=== PATIENT | male | born 1965 | race Caucasian/White ===

== ENCOUNTER 2017-02-06 10:50 | Day surgery (SDC) | payer OTHER ==
[~2017-02-06 10:50] MED LIST: Buffered Lidocaine 0.9% SYRIN* 5 ML/SYR SYRINGE INTRADERM ONE; Dexamethasone IV* 4 MG/ML 1 ML (4 MG) IV SLOW PU ONE; Famotidine IV* 10 MG/ML 2 ML (20 mg) IV ONE; ceFAZolin 2 GM PREMIX (*) 100 ML IVPB ONE
[2017-02-06] MEDS ORDERED: Buffered Lidocaine 0.9% SYRIN* 5 ML/SYR SYRINGE ONE (10:53)
[2017-02-06] MEDS ORDERED: Dexamethasone IV* 4 MG/ML 1 ML (4 MG) ONE (10:53)
[2017-02-06] MEDS ORDERED: Famotidine IV* 10 MG/ML 2 ML (20 mg) ONE (10:53)
[2017-02-06] MEDS ORDERED: Lidocaine 1% INJ* 10 MG/ML 30 ML SDV ONE (11:25)
[2017-02-06] MEDS ORDERED: Midazolam* 1 MG/ML 2 ML VIAL (2 MG) ONE (12:36)
[2017-02-06] MEDS ORDERED: fentaNYL* 50 MCG/ML 2 ML VIAL (100 MCG VIAL) ONE (12:36)
[2017-02-06] MEDS ORDERED: Lidocaine 2% PF * 5 ML VIAL ONE (12:43)
[2017-02-06] MEDS ORDERED: Propofol* 10 MG/ML 20 ML BTL IV PUSH ONE (12:43)
[2017-02-06] MEDS ORDERED: fentaNYL* 50 MCG/ML 2 ML VIAL (100 MCG VIAL) IV PRN (13:14)
[2017-02-06] MEDS ORDERED: oxyCODONE/Acetamin 5/325 MG* TAB PO PRN (13:14)
[2017-02-06] MEDS ORDERED: HYDROcodone/ACETAMIN 5-325 MG* 1 TAB PO PRN (13:14)
[2017-02-06] MEDS ORDERED: Ondansetron INJ* 2 MG/ML VIAL IV PRN (13:14)
--- NOTE | 2017-02-06 13:54 | RAD ---
HISTORY: Port placed COMPARISONS: December 25, 2016 VIEWS:1: Single frontal portable view of the chest at 1:33 PM FINDINGS: LINES AND TUBES: A right-sided chest port is noted from subclavian approach with the tip overlying the right atrium. CARDIOMEDIASTINAL SILHOUETTE: The cardiomediastinal silhouette is normal for portable technique. PLEURA: The costophrenic angles are sharp. No pleural abnormalities are noted. LUNG PARENCHYMA: The lungs are clear. ABDOMEN: The upper abdomen is clear. There is no subphrenic gas. BONES AND SOFT TISSUES: No bone or soft tissue abnormalities are noted. IMPRESSION: LINES AND TUBES ABOVE. NO ACTIVE CARDIOPULMONARY DISEASE.
[2017-02-06 14:29] VITALS: BP 142/105
--- NOTE | 2017-02-07 02:37 | OP ---
CC: Madi Melton MD * DATE OF OPERATION: 02/06/17 - [facility] DATE OF : 61 SURGEON: Randy Everett MD WILDLIFE BIOLOGIST: None. ANESTHESIOLOGIST: Dr. Dinero. ANESTHESIA: LMAC anesthesia. PRE-OP DIAGNOSIS: Melanoma. POST-OP DIAGNOSIS: Melanoma. OPERATIVE PROCEDURE: Placement of right subclavian 8-Welsh PowerPort. DESCRIPTION OF PROCEDURE: The patient was supine on the operative table. After adequate intravenous sedation, compression stockings, Evelyn Hugger warmer, and intravenous antibiotics, the right neck and chest region were prepped with anesthetic, draped in a sterile fashion. Local infiltrative anesthesia was administered. Subclavian incision was created at approximately 3 cm and inferior pocket was created. Subclavian venipuncture was carried out and guidewire was passed under fluoroscopic guidance. Catheter was passed through the peel-away introducer. It was measured and cut at 24 cm under fluoroscopy, attached to the port which was sutured into the pocket using 2-0 Prolene. The pocket was then closed with 3-0 and 5-0 Polysorb followed by Steri-Strips. Port had good blood return and was flushed with saline solution and heparinized solution. He tolerated the procedure well, was awakened and brought to Recovery in good condition. There were no complications. No drains. No pathologic specimens. Sponge and instrument counts correct. Estimated blood loss 10 mL. [id number] #: [id number] MTDD
--- NOTE | 2017-02-10 15:29 | RAD ---
INDICATION: chest port placement COMPARISONS: None relevant TECHNIQUE: Fluoroscopy was provided for a vascular access procedure. Total fluoroscopy time is: 3.6 seconds FINDINGS: A single spot image shows a right-sided chest port with tip overlying the right atrium. IMPRESSION: FLUOROSCOPY WAS PROVIDED FOR A VASCULAR ACCESS PROCEDURE CPT II Codes: 6045F
== END 2017-02-06 14:29 | disposition home or self-care (01) ==
LOC: OR 10:50
PROVIDERS: ATTEND Surgery
DX: C43.9 Malignant melanoma of skin, unspecified (principal); C77.3 Secondary and unspecified malignant neoplasm of axilla and upper limb lymph nodes; Z87.891 Personal history of nicotine dependence
CPT/HCPCS: 71010; C1788; J0690; J1100; J1642; J2001; J2250; J2704; J3010

== ENCOUNTER 2017-02-22 02:07 | Inpatient (IN) | payer OTHER ==
[2017-02-22] MEDS ORDERED: Acetaminophen TAB* 325 MG PO ONE (02:18)
[2017-02-22] MEDS ORDERED: NS 0.9% 1000 ML* 1,000 ML IV ONE (02:18)
[2017-02-22 02:53] LABS: Hematocrit 42 % (42-52); Hemoglobin 14.7 g/dl (14.0-18.0); Mean Corpuscular HGB Conc 35 g/dl (31-36); Mean Corpuscular Hemoglobin 33 pg (27-31); Mean Corpuscular Volume 92 fL (80-94); Mean Platelet Volume 7 um3 (7.4-10.4); Red Blood Count 4.51 10^6/ul (4.0-5.4); Red Cell Distribution Width 13 % (10.5-15)
[2017-02-22 03:05] LABS: Albumin 3.8 g/dL (3.2-5.2); BUN/Creatinine Ratio 13.3 (8-20); Calcium 9.4 mg/dL (8.6-10.3); EGFR Non-African American 67.6 (>60); Globulin 3.4 g/dL (2-4); Magnesium 1.8 mg/dL (1.9-2.7); Potassium 3.1 mmol/L (3.5-5.0); Total Bilirubin 0.8 mg/dL (0.2-1.0); Total Protein 7.2 g/dL (6.4-8.9)
[2017-02-22 03:07] LABS: Troponin I 0.01 ng/mL (<0.04)
[2017-02-22] MEDS ORDERED: Iohexol 350* (CONTRAST) 500 ML MDV IV ONE (03:13)
[2017-02-22 03:21] LABS: Urine Bacteria Absent (Absent); Urine Bilirubin Negative (Negative); Urine Glucose Negative (Negative); Urine Nitrite Negative (Negative)
[2017-02-22 03:33] LABS: TSH (Thyroid Stimulating Horm) 2.23 mcIU/mL (0.34-5.60)
--- NOTE | 2017-02-22 04:02 | ED ---
Mini Ceja Rebecca, scribed for Randy Andino MD on 02/22/17 at 0230 . Shortness of Breath - HPI Summary HPI Summary: Pt is a 52 y/o M who presents to ED c/o SOB and fever. reports that at 0100 his fever was 102.7 orally. SOB is characterized as dyspnea at rest. 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 Additionally notes fatigue for the past few days. Pt denies any pain. Pt is currently undergoing chemotherapy Tx for metastatic melanoma. He has done 3 rounds of radiation and his first chemotharpy treatment was on 02/11. Oncologist is Dr. Chapman. Called the oncologist construction area manager who advised that he been evaluated by [facility] [place] [facility] ED. - History of Current Complaint Chief Complaint: EDShortnessOfBreath Time Seen by Provider: 02/22/17 02:18 Hx Obtained From: Patient, Family/Lead Injection Mold Technician - Onset/Duration: Lasting Hours, Still Present Dyspnea At: Rest Aggrevating Factors: Nothing Alleviating Factors: Nothing Associated Signs & Symptoms: Fever - Allergy/Home Medications Allergies/Adverse Reactions: Allergies Allergy/AdvReac Type Severity Reaction Status Date / Time No Known Allergies Allergy Verified 02/22/17 03:06 PMH/Surg Hx/FS Hx/Imm Hx Endocrine/Hematology History: Denies: Hx Diabetes Cardiovascular History: Reports: Hx Hypertension - no meds now Denies: Hx Pacemaker/ICD, Other Cardiovascular Problems/Disorders Respiratory History: Denies: Other Respiratory Problems/Disorders GI History: Denies: Other GI Disorders History: Denies: Hx Renal Disease Musculoskeletal History: Denies: Other Musculoskeletal History Sensory History: Denies: Hx Contacts or Glasses, Hx Hearing Aid Opthamlomology History: Denies: Hx Contacts or Glasses Neurological History: Denies: Other Neuro Impairments/Disorders Psychiatric History: Denies: Hx Panic Disorder - Cancer History Cancer Type, Location and Year: [facility] [facility] Hx Chemotherapy: Yes - Surgical History Surgery Procedure, Year, and Place: 11/2016 - CRANIOTOMY - [facility] [facility] ( WHILE ON VACATION). TONSILECTOMY age 4 Hx Anesthesia Reactions: No Infectious Disease History: Denies: Traveled Outside the [place] in Last 30 Days - Family History Known Family History: Negative: Cardiac Disease, Hypertension, Diabetes - Social History Alcohol Use: Rare Alcohol Amount: 1 per year Substance Use Type: Reports: None Smoking Status (MU): Former Smoker Amount Used/How Often: pack a day for 30 years Review of Systems Positive: Fever, Fatigue Positive: Shortness Of Breath Positive: Other - NEGATIVE: any pain All Other Systems Reviewed And Are Negative: Yes Physical Exam Triage Information Reviewed: Yes Vital Signs On Initial Exam: Initial Vitals Temp Pulse Resp BP Pulse Ox 100.6 F 135 22 123/86 90 02/22/17 02:13 02/22/17 02:13 02/22/17 02:13 02/22/17 02:13 02/22/17 02:13 Vital Signs Reviewed: Yes Appearance: Positive: No Pain Distress, Ill-Appearing Skin: Positive: Warm Head/Face: Positive: Normal Head/Face Inspection Eyes: Positive: DEBBI ENT: Positive: Hearing grossly normal Neck: Positive: Supple Respiratory/Lung Sounds: Positive: Clear to Auscultation, Breath Sounds Present Cardiovascular: Positive: RRR Abdomen Description: Positive: Nontender, Soft Bowel Sounds: Positive: Present Musculoskeletal: Positive: Strength/ROM Intact Neurological: Positive: Alert, Oriented to Person Place, Time Psychiatric: Positive: Affect/Mood Appropriate Diagnostics - Vital Signs Vital Signs Temp Pulse Resp BP Pulse Ox 02/22/17 02:13 100.6 F 135 22 123/86 90 - Laboratory Result Diagrams: 02/22/17 02:35 02/22/17 02:35 Lab Statement: Any lab studies that have been ordered have been reviewed, and results considered in the medical decision making process. - Radiology CXR Xray Interpretation: No Acute Changes Radiology Interpretation Completed By: ED Physician - CT CTA Chest CT Interpretation Completed By: Radiologist - No pulmonary embolism. Interstitial markings septal markings, and hzxy densities suggest pulmonary edema. Correlation with fluid balance and cardiac examination is recommended. ED physician reviewed this radiology report and agrees. - EKG 0307 Cardiac Rate: Tachycardia - 123 bpm EKG Rhythm: Sinus Tachycardia EKG Interpretation: No acute changes Re-Evaluation - Re-Evaluation First Eval Comment: results d/w pt, family, case d/w hospitalist Course/Dx - Course Assessment/Plan: Pt is a 52 y/o M who presents to ED c/o SOB and fever. reports that at 0100 his fever was 102.7 orally. SOB is characterized as dyspnea at rest. 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 Additionally notes fatigue for the past few days. Pt denies any pain. Pt is currently undergoing chemotherapy Tx for metastatic melanoma. He has done 3 rounds of radiation and his first chemotharpy treatment was on 02/11. Oncologist is Dr. Chapman. Called the oncologist construction area manager who advised that he been evaluated by [facility] ED. In the ED course, pt was administered Tylenol and fluids. CXR is negative, as read by ED physician. EKG is sinus tachycardia with no acute changes. CTA Chest reveals "No pulmonary emolism. Interstitial markings septal markings, and hzxy densities suggest pulmonary edema. Correlation with fluid balance and cardiac examination is recommended." Troponin of 0.01, D-Dimer of 634. In the ED course, pt received fluids and Tylenol. Discussed care of pt with Dr. Lazaro Olivarez who accepts pt for admission. Pt will be admitted with Dx of hypoxia. He understands and agrees. Elevated BP noted and advised to f/u. - Diagnoses Provider Diagnoses: Hypoxemia - Physician Notifications Discussed Care of Patient With: Lazaro Olivarez Time Discussed With Above Provider: 04:21 Instructed by Provider To: Admit As Inpatient - Accepts pt for admission - Critical Care Time Critical Care Time: 30-74 min Discharge - Discharge Plan Condition: Fair Disposition: ADMITTED TO [facility] The documentation as recorded by the Mini eaton Rebecca accurately reflects the service I personally performed and the decisions made by me, Randy Andino MD.
[2017-02-22] MEDS ORDERED: Albuterol 2.5 MG/3 ML NEB.SOL* (0.083%) INH PRN (05:19)
[2017-02-22] MEDS ORDERED: Magnesium Oxide TAB* 400 MG PO ONE (05:23)
[2017-02-22] MEDS ORDERED: NS 0.9% 1000 ML* 1,000 ML IV SCH ×2 (05:30→08:50)
[2017-02-22] MEDS ORDERED: Vancomycin(*) 1,250 MG in NS 0.9% 250 ML* 250 ML IVPB ONE (06:30)
--- NOTE | 2017-02-22 07:45 | RAD ---
INDICATION: Fever. COMPARISON: Comparison is made with a prior chest x-ray study from February 06, 2017. TECHNIQUE: Dual-energy PA and lateral views of the chest were obtained. FINDINGS: The heart is within normal limits in size. Mediastinal and hilar contours appear within normal limits. The lungs are underinflated. There is mild prominence of the interstitial markings and small bibasilar infiltrates. No pleural effusion is seen. There is flattening of the diaphragms suggesting the possibility of chronic destructive pulmonary disease. IMPRESSION: SMALL BIBASILAR INFILTRATES.
--- NOTE | 2017-02-22 07:59 | RAD ---
INDICATION: Shortness of breath. COMPARISON: Comparison is made with a prior PET/CT study from January 17, 2017 and a prior chest x-ray study from February 22, 2017. TECHNIQUE: A CT angiogram of the chest was performed with intravenous following intravenous injection of 75 ml of Omnipaque 350 nonionic contrast. Contiguous axial sections were obtained from the lung apices through the lung bases. Images were reconstructed in the coronal and sagittal planes. FINDINGS: There is relatively homogeneous opacification of the pulmonary arteries. No intraluminal filling defect or pulmonary embolism is seen. The heart is within normal limits in size. No pericardial effusion is present. The descending thoracic aorta is mildly ectatic. There is homogeneous opacification of the thoracic aorta without evidence for dissection. There are enlarged mediastinal lymph nodes in the right paratracheal aorticopulmonary window and subcarinal regions measuring up to 1.3 cm in transverse dimension. There are also slightly enlarged right hilar lymph nodes measuring up to 1.2 cm in transverse dimension. There are markedly enlarged left axillary lymph nodes measuring up to 4.0 cm in transverse dimension. The mediastinal and axillary lymph nodes appear to have progressed from the prior study. There is diffuse prominence of the interstitial markings with more focal patchy infiltrates present in both lower lobes. No pleural effusion is seen. No significant focal osseous abnormality is seen. IMPRESSION: 1. NO EVIDENCE FOR PULMONARY EMBOLISM. 2. PROMINENCE OF THE INTERSTITIAL MARKINGS WITH MORE PATCHY INFILTRATES PRESENT IN BOTH LOWER LOBES SUGGESTIVE OF CONGESTIVE HEART FAILURE OR PNEUMONIA. 3. ENLARGED MEDIASTINAL, RIGHT HILAR AND LEFT AXILLARY LYMPH NODES DEMONSTRATING PROGRESSION FROM THE PRIOR STUDY.
[2017-02-22] MEDS ORDERED: NS 0.9% w/ 20 Meq KCL 1000 ML* 1,000 ML IV SCH (08:00)
[2017-02-22] MEDS: ceFOXitin 2 GM IVPREMIX* 2 GM/50 ML BAG IVPB SCH ×3 (08:00→17:04)
--- NOTE | 2017-02-22 08:39 | PN ---
Progress Note - Progress Note Date of Service: 02/22/17 SOAP: Subjective: admission data reviewed. reports early this am shaking chills and fever to 102. on walk to car felt chest pressure with breathing, cough and SOB. noted in ER to be febrile and tachycardic, with hypoxia. CTA without clot but + pneumonitis. After port accessed this am got significantly tachycardic (150s), now back to 115. on 6L with O2 sat of 94%. no headaches, nausea, vomiting, or abdominal pain. +dry cough. Objective: Vital Signs Temp Pulse Resp BP Pulse Ox 98.8 F 94 28 121/89 92 02/22/17 06:19 02/22/17 06:19 02/22/17 06:19 02/22/17 06:19 02/22/17 06:19 clearly dyspneic though reports he feels well perr eomi op moist fine crackles both bases tachycardic clean port soft nt +Bs no le edema A+o x 3, though purposeful in speech +left axillary adenopathy Laboratory Results - last 24 hr 02/22/17 02/22/17 02/22/17 02:35 02:35 02:35 WBC 9.0 RBC 4.51 Hgb 14.7 Hct 42 MCV 92 MCH 33 H MCHC 35 RDW 13 Plt Count 234 MPV 7 L Neut % (Auto) 75.5 Lymph % (Auto) 12.2 L Surry % (Auto) 10.4 H Eos % (Auto) 1.4 Baso % (Auto) 0.5 Absolute Neuts (auto) 6.8 Absolute Lymphs (auto) 1.1 Absolute Monos (auto) 0.9 H Absolute Eos (auto) 0.1 Absolute Basos (auto) 0 Absolute Nucleated RBC 0 Nucleated RBC % 0 D-Dimer, Quantitative Sodium 133 Potassium 3.1 L Chloride 97 L Carbon Dioxide 27 Anion Gap 9 BUN 15 Creatinine 1.13 Est GFR ( Amer) 87.0 Est GFR (Non-Af Amer) 67.6 BUN/Creatinine Ratio 13.3 Glucose 133 H Lactic Acid 1.6 Calcium 9.4 Magnesium 1.8 L Total Bilirubin 0.80 AST 23 ALT 34 Alkaline Phosphatase 84 Total Creatine Kinase 20 Troponin I 0.01 B-Natriuretic Peptide Total Protein 7.2 Albumin 3.8 Globulin 3.4 Albumin/Globulin Ratio 1.1 TSH 2.23 Urine Color Urine Appearance Urine pH Ur Specific [place] Urine Protein Urine Ketones Urine Blood Urine Nitrate Urine Bilirubin Urine Urobilinogen Ur Leukocyte Esterase Urine WBC (Auto) Urine RBC (Auto) Ur Squamous Epith Cells Urine Bacteria Urine Glucose 02/22/17 02/22/17 02/22/17 02:35 02:35 03:00 WBC RBC Hgb Hct MCV MCH MCHC RDW Plt Count MPV Neut % (Auto) Lymph % (Auto) Sur[place] % (Auto) Eos % (Auto) Baso % (Auto) Absolute Neuts (auto) Absolute Lymphs (auto) Absolute Monos (auto) Absolute Eos (auto) Absolute Basos (auto) Absolute Nucleated RBC Nucleated RBC % D-Dimer, Quantitative 634 H Sodium Potassium Chloride Carbon Dioxide Anion Gap BUN Creatinine Est GFR ( Amer) Est GFR (Non-Af Amer) BUN/Creatinine Ratio Glucose Lactic Acid Calcium Magnesium Total Bilirubin AST ALT Alkaline Phosphatase Total Creatine Kinase Troponin I B-Natriuretic Peptide 32 Total Protein Albumin Globulin Albumin/Globulin Ratio TSH Urine Color Christina Urine Appearance Clear Urine pH 5.0 Ur Specific [place] 1.028 Urine Protein 1+(30 mg/dl) H Urine Ketones Negative Urine Blood 1+ H Urine Nitrate Negative Urine Bilirubin Negative Urine Urobilinogen Positive H Ur Leukocyte Esterase Negative Urine WBC (Auto) Trace(0-5/hpf) Urine RBC (Auto) Trace(0-2/hpf) Ur Squamous Epith Cells Present H Urine Bacteria Absent Urine Glucose Negative Assessment: 52 yo M w metastatic melanoma who just started nivolumab/ipilumumab (cycle 1 day 11) presenting with rigors, fevers, and hypoxia with CTA showing pneumonitis. DDx includes infectious pneumonitis vs. drug induced. This is a bit early for drug induced, however 10% incidence and does tend to be earlier in combined therapy than in single agent. BNP very low ruling out heart failure. Will need to treat broadly with antibiotics and steroids. Plan: -prednisone equivalent of 1mg/kg, solumedrol 40 mg IV bid (expect WBC to rise on this) -close observation, if O2 requirements increase will move to ICU -cont abx -sputum cx, urine strep and legionella Ags -cont hydration with KCL repletion IV and PO -cont tele monitoring -lovenox DVT prophylasix -full code
[2017-02-22] MEDS: Enoxaparin(*) 40 MG/0.4 ML SYR SUBCUT SCH (08:48)
[2017-02-22] MEDS: methylPREDNISolone SOD 40 MG* 1 ML VIAL IV SCH ×2 (08:48→21:27)
[2017-02-22] MEDS: Sodium Chloride TAB* 1 GM PO SCH (08:48)
[2017-02-22] MEDS: Potassium Chlor TAB* 10 MEQ TAB.ER PO SCH ×2 (08:48→21:27)
[2017-02-22] MEDS ORDERED: Vancomycin per Pharmacy* NOTE FOLLOW UP PRN (10:39)
--- NOTE | 2017-02-22 11:18 | HP ---
CC: Dr. Melton ADMISSION HISTORY AND PHYSICAL: DATE OF ADMISSION: 02/22/17. CHIEF COMPLAINT: Fever. HISTORY OF PRESENT ILLNESS: Mr. Juarez is a 52-year-old man who was recently diagnosed with stage 4 melanoma. He has been on chemotherapy starting on 02/11/17 and also has had radiation therapy to h is head for three rounds. History is obtained mostly from his , who reports that he was in his usual state of health when he went to bed last night, but then woke up with a fever of 102.7 at 1 a. m. He had some shortness of breath. He denies any cough or hemoptysis. He has had some fatigue in the last few days, but no focal symptoms of infection such as sore throat, abdominal pain, nausea, v omiting, diarrhea, or dysuria. The patient's called the on-call doctor and patient was advised to come to the emergency room. PAST MEDICAL HISTORY: Melanoma stage IV with known mets to the brain. He also has a history of hyp onatremia, that was diagnosed at the same time. PAST SURGICAL HISTORY: The patient had a craniotomy shortly after being diagnosed while traveling i [facility]. He had this craniotomy on December 19 followed by radiation. Surgical history also include s a pacemaker power port. MEDICATIONS ON ADMISSION: Sodium chloride tablet 1 g daily. ALLERGIES: None. FAMILY HISTORY: Family history is notable for mother alive with history of melanoma. Father deceas ed from melanoma. Seven siblings are without melanoma. 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 He is recently. He h as two children from previous relationships. He quit tobacco in November. Drinks alcohol rarely. No r ecreational drugs. REVIEW OF SYSTEMS: The patient denies any anorexia or weight loss. The patient denies any chest pa in or palpitations. The patient denies any cough or hemoptysis, but does have shortness of breath. The patient denies any nausea, vomiting, or abdominal pain, but does report diarrhea last week afte r chemotherapy which was seems to be resolving. Remainder of a 14-point review of systems is negati ve other than that mentioned in the HPI. PHYSICAL EXAMINATION GENERAL: He is a well-appearing middle-aged man, in no acute distress. VITAL SIGNS: Temperature is 38.9, pulse is 125, respirations 28, blood pressure 131/87, O2 sat is 9 2%. HEENT: Head is normocephalic, atraumatic. Sclerae anicteric. Pupils are equal, round and reactive to light and accommodation. Oropharynx is moist, no lesions. NECK: No JVD. No carotid bruit. No thyromegaly. LUNGS: Clear to auscultation, but diminished throughout. CHEST: Exam notable for a port in the right subclavian area without any surrounding erythema. HEART: Regular rate and rhythm, without murmurs or gallops. ABDOMEN: Soft, nontender, nondistended. Positive bowel sounds. No hepatosplenomegaly. EXTREMITIES: No peripheral edema. NEUROLOGIC: Cranial nerves II through XII are intact except there is some mild medial strabismus on the left eye. His speech is slow, but distinct. Cranial nerves II through XII are intact. Motor strength is 5/5 throughout. Deep tendon reflexes are 1+ and symmetric. SKIN: No rashes. LABORATORY DATA: Sodium 133, potassium 3.1, chloride 97, bicarbonate 27, BUN 15, creatinine 1.3, g lucose 133, calcium 9.4, magnesium 1.8, albumin 3.8. AST 23, ALT 34, troponin 0.01. TSH 2.23, D-di stuart 634, BNP is 32. White count 9.0, hemoglobin 14.7, hematocrit 42%, and platelets 234. Urinalysi s with 1+ protein and 1+ blood. EKG shows sinus tachycardia 123 beats per minute, leftward axis, T-wave inversions, LVH was present with flattening of the T-waves in V3 to V6. Chest x-ray is negative for infiltrates or effusions. CT angio of the chest shows no pulmonary emboli, but there is some mild interstitial prominence and mediastinal lymphadenopathy. ASSESSMENT AND PLAN: A 52-year-old man with immunosuppression due to metastatic melanoma, as well a s chemotherapy radiation. He presents with signs concerning for sepsis including fever, tachycardia , and tachypnea. His white count is normal, however. The patient would be admitted to the hospital and started on empiric cefepime and vancomycin due to sepsis and risk of shock. The patient will h ave blood cultures drawn through his port and peripherally prior to initiation of antibiotics. Dr. Cisneros will assume care of the patient for the oncology service. The patient has hypokalemia and hypomagnesemia. This would be repleted intravenously and orally and rechecked in the morning. Code status is full. DVT prophylaxis will be with subcutaneous Lovenox. The patient is a high risk because of his metast atic cancer. [id number]/[facility] #: [id number]
[2017-02-22] MEDS ORDERED: Vancomycin(*) 1,000 MG in NS 0.9% 250 ML* 250 ML IVPB SCH (16:00)
[2017-02-22] MEDS: NS 0.9% w/ 20 Meq KCL 1000 ML* 1,000 ML IV SCH (21:25)
[2017-02-23] MEDS: ceFOXitin 2 GM IVPREMIX* 2 GM/50 ML BAG IVPB SCH ×4 (00:54→17:40)
[2017-02-23] MEDS: NS 0.9% w/ 20 Meq KCL 1000 ML* 1,000 ML IV SCH (04:27)
[2017-02-23] MEDS: Enoxaparin(*) 40 MG/0.4 ML SYR SUBCUT SCH (06:14)
[2017-02-23 06:41] LABS: Hematocrit 36 % (42-52); Hemoglobin 12.3 g/dl (14.0-18.0); Mean Corpuscular HGB Conc 35 g/dl (31-36); Mean Corpuscular Hemoglobin 32 pg (27-31); Mean Corpuscular Volume 92 fL (80-94); Mean Platelet Volume 6 um3 (7.4-10.4); Red Blood Count 3.87 10^6/ul (4.0-5.4); Red Cell Distribution Width 13 % (10.5-15); White Blood Count 11.2 10^3/ul (3.5-10.8)
[2017-02-23 07:06] LABS: Albumin 3.2 g/dL (3.2-5.2); BUN/Creatinine Ratio 16.9 (8-20); Calcium 8.8 mg/dL (8.6-10.3); EGFR African American 148.7 (>60); EGFR Non-African American 115.6 (>60); Globulin 2.8 g/dL (2-4); Magnesium 2.1 mg/dL (1.9-2.7); Potassium 4.1 mmol/L (3.5-5.0); Total Bilirubin 0.4 mg/dL (0.2-1.0)
[2017-02-23] MEDS ORDERED: Vancomycin Trough Check NOTE FOLLOW UP ONE (07:30)
--- NOTE | 2017-02-23 07:51 | PN ---
Progress Note - Progress Note Date of Service: 02/23/17 SOAP: Subjective: sitting in bed withOUT O2 on as he was in the restroom and didn't put it back on. denies SOB (clearly dyspneic) just cough with white phlegm. last BM yesterday, no diarrhea. Objective: Vital Signs Temp Pulse Resp BP Pulse Ox 97.6 F 77 20 134/52 90 02/23/17 03:16 02/23/17 03:16 02/23/17 03:16 02/23/17 03:16 02/23/17 03:16 O2 sat 76% on room air at rest, comes up to low 90s on 6L perr eomi op moist crackles bases bilaterally s1 s2 nl soft nt +Bs no le edema A+O x 3, nonfocal neuro exam port clean Laboratory Results - last 24 hr 02/23/17 02/23/17 06:30 06:30 WBC 11.2 H RBC 3.87 L Hgb 12.3 L Hct 36 L MCV 92 MCH 32 H MCHC 35 RDW 13 Plt Count 230 MPV 6 L Neut % (Auto) 81.9 Lymph % (Auto) 9.9 L [place] % (Auto) 7.8 Eos % (Auto) 0 Baso % (Auto) 0.4 Absolute Neuts (auto) 9.2 H Absolute Lymphs (auto) 1.1 Absolute Monos (auto) 0.9 H Absolute Eos (auto) 0 Absolute Basos (auto) 0 Absolute Nucleated RBC 0 Nucleated RBC % 0 Sodium 135 Potassium 4.1 Chloride 104 Carbon Dioxide 26 Anion Gap 5 BUN 12 Creatinine 0.71 Est GFR ( Amer) 148.7 Est GFR (Non-Af Amer) 115.6 BUN/Creatinine Ratio 16.9 Glucose 154 H Calcium 8.8 Magnesium 2.1 Total Bilirubin 0.40 AST 14 ALT 21 Alkaline Phosphatase 63 Total Protein 6.0 L Albumin 3.2 Globulin 2.8 Albumin/Globulin Ratio 1.1 Albuterol (Ventolin 2.5 Mg/3 Ml Neb.Reina*) 2.5 mg INH [id number] AWAKE PRN PRN Reason: SOB/WHEEZING Last Admin: 02/22/17 10:03 Dose: 2.5 mg Enoxaparin Sodium (Lovenox(*)) 40 mg SUBCUT Q24H KENISHA Last Admin: 02/23/17 06:14 Dose: 40 mg Cefoxitin Sodium (Mefoxin 2gm Ivpremix*) 2 gm in 50 mls @ 100 mls/hr IVPB Q6H [facility] Last Admin: 02/23/17 06:20 Dose: 100 mls/hr Sodium Chloride (Ns 0.9% 1000 Ml*) 1,000 mls @ 100 mls/hr IV PER RATE [facility] Methylprednisolone Sodium Succinate (Solu-Medrol 40 Mg) 40 mg IV Q12H [facility] Last Admin: 02/22/17 21:27 Dose: 40 mg Potassium Chloride (Klor Con Er Tab*) 10 meq PO BID [facility] Last Admin: 02/22/17 21:27 Dose: 10 meq Sodium Chloride (Sodium Chloride Tab*) 1 gm PO DAILY [facility] Last Admin: 02/22/17 08:48 Dose: 1 gm Assessment: 52 yo M w metastatic melanoma who just started nivolumab/ipilumumab (cycle 1 day 12) presenting with rigors, fevers, and hypoxia with CTA showing pneumonitis. DDx includes infectious pneumonitis vs. drug induced (favor the latter). Plan: -prednisone equivalent of 1mg/kg, solumedrol 40 mg IV bid (expect WBC to rise on this) -advised NOT to take off O2 even for going to the bathroom as he gets significantly hypoxic -cont abx -sputum cx, urine strep and legionella Ags -cont hydration, change to NS -cont tele monitoring -lovenox DVT prophylasix -full code
[2017-02-23] MEDS: NS 0.9% 1000 ML* 1,000 ML IV SCH ×2 (08:30→19:51)
[2017-02-23] MEDS: Sodium Chloride TAB* 1 GM PO SCH (08:30)
[2017-02-23] MEDS: Potassium Chlor TAB* 10 MEQ TAB.ER PO SCH ×2 (08:30→19:58)
[2017-02-23] MEDS: methylPREDNISolone SOD 40 MG* 1 ML VIAL IV SCH ×2 (08:30→19:56)
[2017-02-24] MEDS: ceFOXitin 2 GM IVPREMIX* 2 GM/50 ML BAG IVPB SCH ×4 (00:23→17:03)
[2017-02-24] MEDS: Enoxaparin(*) 40 MG/0.4 ML SYR SUBCUT SCH (05:29)
[2017-02-24 05:52] LABS: Hematocrit 36 % (42-52); Hemoglobin 12.6 g/dl (14.0-18.0); Mean Corpuscular HGB Conc 35 g/dl (31-36); Mean Corpuscular Hemoglobin 32 pg (27-31); Mean Corpuscular Volume 93 fL (80-94); Mean Platelet Volume 6 um3 (7.4-10.4); Red Blood Count 3.88 10^6/ul (4.0-5.4); Red Cell Distribution Width 13 % (10.5-15); White Blood Count 13.2 10^3/ul (3.5-10.8)
[2017-02-24 06:02] LABS: BUN/Creatinine Ratio 20.5 (8-20); Potassium 3.9 mmol/L (3.5-5.0)
--- NOTE | 2017-02-24 07:54 | PN ---
Progress Note - Progress Note Date of Service: 02/24/17 SOAP: Subjective: feels good this am. still mild cough but denies SOB. no fevers. still requiring 5-6L NC Objective: Vital Signs Temp Pulse Resp BP Pulse Ox 98.1 F 76 24 127/79 93 02/24/17 02:55 02/24/17 02:55 02/24/17 02:55 02/24/17 02:55 02/24/17 02:55 sitting up in NAD perr eomi op moist dec bs at both bases L>R soft nt +Bs no le edema A+O x3, nonfocal neurological exam (slow purposeful speech but coherent) +left axillary adenopathy Laboratory Results - last 24 hr 02/24/17 02/24/17 05:22 05:22 WBC 13.2 H RBC 3.88 L Hgb 12.6 L Hct 36 L MCV 93 MCH 32 H MCHC 35 RDW 13 Plt Count 293 MPV 6 L Neut % (Auto) 80.8 Lymph % (Auto) 11.5 L [place] % (Auto) 7.4 Eos % (Auto) 0 Baso % (Auto) 0.3 Absolute Neuts (auto) 10.7 H Absolute Lymphs (auto) 1.5 Absolute Monos (auto) 1.0 H Absolute Eos (auto) 0 Absolute Basos (auto) 0 Absolute Nucleated RBC 0 Nucleated RBC % 0 Sodium 135 Potassium 3.9 Chloride 102 Carbon Dioxide 25 Anion Gap 8 BUN 15 Creatinine 0.73 Est GFR ( Amer) 144.0 Est GFR (Non-Af Amer) 112.0 BUN/Creatinine Ratio 20.5 H Glucose 130 H Calcium 9.0 Albuterol (Ventolin 2.5 Mg/3 Ml Neb.Reina*) 2.5 mg INH [id number] AWAKE PRN PRN Reason: SOB/WHEEZING Last Admin: 02/22/17 10:03 Dose: 2.5 mg Enoxaparin Sodium (Lovenox(*)) 40 mg SUBCUT Q24H KENISHA Last Admin: 02/24/17 05:29 Dose: 40 mg Cefoxitin Sodium (Mefoxin 2gm Ivpremix*) 2 gm in 50 mls @ 100 mls/hr IVPB Q6H KENISHA Last Admin: 02/24/17 05:29 Dose: 100 mls/hr Methylprednisolone Sodium Succinate (Solu-Medrol 40 Mg) 40 mg IV Q12H [facility] Last Admin: 02/23/17 19:56 Dose: 40 mg Potassium Chloride (Klor Con Er Tab*) 10 meq PO BID [facility] Last Admin: 02/23/17 19:58 Dose: 10 meq Sodium Chloride (Sodium Chloride Tab*) 1 gm PO DAILY [facility] Last Admin: 02/23/17 08:30 Dose: 1 gm Assessment: 52 yo M w metastatic melanoma who just started nivolumab/ipilumumab (cycle 1 day 12) presenting with rigors, fevers, and hypoxia with CTA showing pneumonitis. DDx includes infectious pneumonitis vs. drug induced (favor the latter). He has worsening breath sounds at his bases today and I suspect that he might be fluid overloaded. Will check CXR and stop IVFs as taking adequate POs. Plan: -prednisone equivalent of 1mg/kg, solumedrol 40 mg IV bid, will likely switch to PO tomorrow -advised NOT to take off O2 even for going to the bathroom as he gets significantly hypoxic -CXR PA/LAT today -cont abx -cont tele monitoring -lovenox DVT prophylaxis -full code
--- NOTE | 2017-02-24 08:45 | RAD ---
INDICATION: Shortness of breath. Fever. Malignant melanoma. History of tobacco use. COMPARISON: February 22, 2017 CT. TECHNIQUE: Dual energy PA and routine lateral views of the chest were obtained. REPORT: Prominent mid to basilar reticular markings without significant change. No focal pulmonary lesion, pleural effusion, pneumothorax. Tip of RIGHT chest port at level of RIGHT atrium. Negative for cardiomegaly. Unremarkable central pulmonary vasculature. Grossly unremarkable radiographic mediastinal contours despite CT evidence for thoracic lymphadenopathy. Negative for free air beneath the diaphragm. IMPRESSION: Unchanged nonspecific prominence of the mid to basilar interstitial markings. Differential includes interstitial edema as well as potential bronchopneumonia.
[2017-02-24] MEDS: Sodium Chloride TAB* 1 GM PO SCH (09:03)
[2017-02-24] MEDS: Potassium Chlor TAB* 10 MEQ TAB.ER PO SCH ×2 (09:03→20:59)
[2017-02-24] MEDS: methylPREDNISolone SOD 40 MG* 1 ML VIAL IV SCH ×2 (09:07→21:00)
[2017-02-25] MEDS: ceFOXitin 2 GM IVPREMIX* 2 GM/50 ML BAG IVPB SCH ×4 (00:29→17:52)
[2017-02-25] MEDS: Enoxaparin(*) 40 MG/0.4 ML SYR SUBCUT SCH (06:09)
[2017-02-25 06:27] LABS: Hematocrit 39 % (42-52); Hemoglobin 13.3 g/dl (14.0-18.0); Mean Corpuscular HGB Conc 34 g/dl (31-36); Mean Corpuscular Hemoglobin 32 pg (27-31); Mean Corpuscular Volume 93 fL (80-94); Mean Platelet Volume 6 um3 (7.4-10.4); Red Cell Distribution Width 13 % (10.5-15); White Blood Count 11.9 10^3/ul (3.5-10.8)
[2017-02-25 07:04] LABS: BUN/Creatinine Ratio 20.5 (8-20); Calcium 9.7 mg/dL (8.6-10.3); EGFR African American 124.2 (>60); EGFR Non-African American 96.5 (>60); Magnesium 2.1 mg/dL (1.9-2.7)
[2017-02-25] MEDS: Potassium Chlor TAB* 10 MEQ TAB.ER PO SCH (09:13)
[2017-02-25] MEDS: methylPREDNISolone SOD 40 MG* 1 ML VIAL IV SCH (09:13)
[2017-02-25] MEDS: Sodium Chloride TAB* 1 GM PO SCH (09:13)
[2017-02-25] MEDS: predniSONE TAB* 20 MG PO SCH (20:47)
[2017-02-26] MEDS: ceFOXitin 2 GM IVPREMIX* 2 GM/50 ML BAG IVPB SCH ×3 (00:24→11:55)
[2017-02-26] MEDS: Enoxaparin(*) 40 MG/0.4 ML SYR SUBCUT SCH (06:01)
[2017-02-26] MEDS: Sodium Chloride TAB* 1 GM PO SCH (09:01)
[2017-02-26] MEDS: predniSONE TAB* 20 MG PO SCH (09:01)
[2017-02-26 11:29] VITALS: BP 127/82
--- NOTE | 2017-02-26 17:02 | DS ---
DISCHARGE SUMMARY: DATE OF ADMISSION: 02/22/17 DATE OF DISCHARGE: 02/26/17 REASON FOR ADMISSION: Pneumonitis. HISTORY OF PRESENT ILLNESS: Mr. Juarez is a 52-year-old male with a history of stage IV melanoma wi th previous radiation therapy for brain metastasis. He is started on chemotherapy with nivolumab an d ipilimumab on 02/11/17. He awoke from sleep the night of admission with temperature of 102.7 and mild shortness of breath. Also some increasing fatigue. On arrival in the emergency room, temperat ure was 102 with tachycardia to 125 and O2 saturation of 92%. Concern was for pneumonitis either in fectious or secondary to recent medications. He was admitted to the hospitalist, started on empiric cefepime and vancomycin due to risk of potential sepsis. Cultures have all been negative. He was found to have hypokalemia and has had ongoing hyponatremia, although sodium at this time was 133 and he is on home sodium chloride tablets. Patient was maintained on antibiotics during the hospitaliz ation with cefoxitin 2 g q. 6 hours and also was started on high dose of steroids initially with Reina u-Medrol and then subsequently switched to prednisone. O2 saturations at the time of admission were quite significant requiring at least 7 L to maintain oxygen saturations over 90% over the past 48 h ours. This has continued to diminish and currently he is on 2 L with O2 saturations remaining over 90%. On ambulation at 1 L with rest and on room air, his O2 saturations dipped down to about 87%. He is tolerated both the high dose IV Solu-Medrol and then the prednisone at 40 b.i.d. well without any complications. Fevers have resolved within the first day in the hospital. CTA of the chest on 02/22/17 revealed no evidence of pulmonary emboli, did reveal interstitial tyra ngs with patchy infiltrates of left lower lobes consistent with pneumonitis. Axillary and right hil ar and mediastinal adenopathy had increased from the prior study of 01/17/17. It was felt most likely that this represents pneumonitis from his ipilimumab/nivolumab. He started chemotherapy with nivolumab on 02/11/2017. He awake from a sleep the night of admission with a temp 102.7 and mild shortness of breath. Also some feels comfortable being discharged to home on oxygen and prednisone. He will be seen Dr. Melton back in the office in two days' time. Currently, his seco nd dose of chemotherapy is on hold until the steroids can be further tapered. Given the negative cu ltures and lack of fevers past hospital day 1, decision is made not to send him home on antibiotics. He has remained with an adequate neutrophils count throughout the hospitalization since he has bee n presenting with white count of 9000 from 11,900 on steroids. DISCHARGE DIAGNOSES: 1. Pneumonitis likely secondary to chemo, possibility of Infectious Pneumonitis cannot be ruled out . 2. Metastatic melanoma with known brain and other metastases. 3. Hyponatremia. 4. Hypokalemia. MEDICATIONS AT THE TIME OF DISCHARGE: Include: 1. Prednisone 40 mg this evening, to be followed by 40 mg in the morning and 20 mg tomorrow evening , 40 mg in the morning only on Friday and then subsequent dosing per office with Dr. Melton. 2. Sodium chloride tablets 1 g daily. FOLLOWUP: Office visit with Dr. Melton on 02/28/17. [id number]/[facility] #: [id number]
== END 2017-02-26 16:06 | disposition home or self-care (01) | DRG 144 ==
LOC: ED 02:07 → MEDTELE 05:16
PROVIDERS: ADMIT Internal Medicine; ATTEND Internal Medicine Hematology & Oncology
DX: J70.4 Drug-induced interstitial lung disorders, unspecified (principal); C79.31 Secondary malignant neoplasm of brain; C79.89 Secondary malignant neoplasm of other specified sites; C43.9 Malignant melanoma of skin, unspecified; E83.42 Hypomagnesemia; E87.1 Hypo-osmolality and hyponatremia; I10 Essential (primary) hypertension; H50.89 Other specified strabismus; E87.6 Hypokalemia; T45.1X5A Adverse effect of antineoplastic and immunosuppressive drugs, initial encounter; J18.9 Pneumonia, unspecified organism; R59.0 Localized enlarged lymph nodes; Z87.891 Personal history of nicotine dependence; Z95.0 Presence of cardiac pacemaker; Z80.8 Family history of malignant neoplasm of other organs or systems
CPT/HCPCS: 36415; 71020; 71275; 80048; 80053; 81003; 81015; 82550; 83605; 83735; 83880; 84443; 84484; 85025; 85379; 87040; 87899; 93005; 94640; 94760; 99232; 99233; A9270-GY; J0694; J1642; J1650; J2920; J3370; J7512; Q9967

== ENCOUNTER 2017-05-18 16:24 | Observation (INO) | payer OTHER ==
[2017-05-18 17:51] LABS: Hematocrit 46 % (42-52); Hemoglobin 15.8 g/dl (14.0-18.0); Mean Corpuscular HGB Conc 34 g/dl (31-36); Mean Corpuscular Hemoglobin 31 pg (27-31); Mean Corpuscular Volume 91 fL (80-94); Mean Platelet Volume 8 um3 (7.4-10.4); Red Blood Count 5.08 10^6/ul (4.0-5.4); Red Cell Distribution Width 14 % (10.5-15); White Blood Count 14.8 10^3/ul (3.5-10.8)
[2017-05-18 18:03] LABS: ALT 26 U/L (7-52); Albumin 3.9 g/dL (3.2-5.2); Alkaline Phosphatase 41 U/L (34-104); BUN/Creatinine Ratio 18.8 (8-20); Blood Urea Nitrogen 16 mg/dL (6-24); CO2 Carbon Dioxide 23 mmol/L (22-32); Calcium 9.3 mg/dL (8.6-10.3); Chloride 101 mmol/L (101-111); EGFR African American 120.8 (>60); EGFR Non-African American 93.9 (>60); Globulin 2.5 g/dL (2-4); Glucose 117 mg/dL (70-100); Magnesium 2.1 mg/dL (1.9-2.7); Sodium 133 mmol/L (133-145); Total Protein 6.4 g/dL (6.4-8.9)
[2017-05-18 18:04] LABS: Anion Gap 9 mmol/L (2-11)
[2017-05-18] MEDS ORDERED: levETIRAcetam IV* 1,000 MG in NS 0.9% 100 ML* 100 ML IVPB ONE (18:50)
[2017-05-18] MEDS ORDERED: Albuterol 2.5 MG/3 ML NEB.SOL* (0.083%) INH PRN (19:12)
[2017-05-18] MEDS ORDERED: Acetaminophen TAB* 325 MG PO PRN (19:12)
[2017-05-18] MEDS ORDERED: Ondansetron INJ* 2 MG/ML VIAL IV PRN (19:18)
[2017-05-18] MEDS ORDERED: Melatonin (NF) 3 MG TAB PO PRN (19:18)
[2017-05-18] MEDS ORDERED: NS 0.9% 1000 ML* 1,000 ML IV SCH (19:30)
[2017-05-18] MEDS ORDERED: predniSONE TAB* 10 MG PO ONE (21:00)
[2017-05-18] MEDS: Docusate CAP* 100 MG PO SCH (21:52)
--- NOTE | 2017-05-18 21:53 | HP ---
H&P (Free Text) History and Physical: PCP: Sophie Melton MD Date/Time: 05/18/2017 1900 CC: seizure HPI: Mr Juarez is a 52YO male diagnosed in November 2016 with melanoma of the L axilla metastatic to brain after a syncopal episode. Tonight he was at home sitting on the couch watching television with his [id number] when she noticed him suddenly slumping over, shaking, drooling, and unresponsive. The patient recalls watching TV and the next thing he was in the bathroom confusedd and unaware of how he got there. His oxiadu-[id number] called EMS and he was transported to [facility] where a CT brain was read as no acute finding, but is currently unavailable for review. He has been given 1g IV levetiracetam and is currently without complaints. He denies prodromal syndrome. He is on a steroid taper, initially reconciled as 40mg AM/20mg PM, for chemo- induced pneumonitis. However, once clarified by myself he has been tapering 10mg weekly and is down to 30mg daily and not taking it BID. I had discussed with Sophie Melton MD oncology the initial dosing of 60mg/day which he wished to continue. As such I will give an additional 30mg prednisone PO tonight. PMedHx melanoma metastatic to brain HTN Ambulatory Orders Nursing to reconcile. 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; full code status FamHx: Mother: alive 83 w/ melanoma; Father: 60 from melanoma; 3 brothers/3 sisters: reportedly healthy & have been screened for melanoma ROS: as above, otherwise reviewed and all were negative vitals: Vital Signs Temp 37.1 C 05/18/17 16:41 Pulse 82 05/18/17 16:57 Resp 16 05/18/17 16:57 BP 145/89 05/18/17 16:46 Pulse Ox 95 05/18/17 16:57 Intake & Output 05/17/17 05/18/17 05/18/17 23:59 11:59 23:59 Intake Total 110 Balance 110 Weight 92.533 kg Intake: IV Fluids 110 Constitutional: NAD, normally developed, obese white male HEENM: atraumatic; sclera/conjunctiva: non-icteric/clear; hearing: clinically intact; oropharynx: clear, mucosa moist Neck: soft tissue: non-tender; thyroid: normal Pulmonary: clear to auscultation bilaterally, good aeration, no accessory muscle use CV: RR/RR, normal S1S2, no carotid bruit, no jugular venous distention, 2+ B DP/ PT, no edema Abdominal: soft, non-distended, non-tender, no rebound/guarding/rigidity, normoactive bowel sounds, no hepatosplenomegaly or masses, no costovertebral angle tenderness Musculoskeletal: general: grossly intact, no palpable tenderness Integumental: normal appearance and texture of exposed skin Psychiatric orientation: AA&O to PPS affect: calm mood: cooperative eye contact: good content: reliable memory: absent regarding event responses: timely insight: fair Testing: Lab Results 05/18/17 05/18/17 05/18/17 Range/Units 17:12 17:12 17:12 WBC 14.8 H (3.5-10.8) 10^3/ul RBC 5.08 (4.0-5.4) 10^6/ul Hgb 15.8 (14.0-18.0) g/dl Hct 46 (42-52) % MCV 91 (80-94) fL MCH 31 (27-31) pg MCHC 34 (31-36) g/dl RDW 14 (10.5-15) % Plt Count 259 (150-450) 10^3/ul MPV 8 (7.4-10.4) um3 Neut % (Auto) 92.0 H (38-83) % Lymph % (Auto) 5.5 L (25-47) % [place] % (Auto) 2.3 (1-9) % Eos % (Auto) 0 (0-6) % Baso % (Auto) 0.2 (0-2) % Absolute Neuts (auto) 13.6 H (1.5-7.7) 10^3/ul Absolute Lymphs (auto) 0.8 L (1.0-4.8) 10^3/ul Absolute Monos (auto) 0.3 (0-0.8) 10^3/ul Absolute Eos (auto) 0 (0-0.6) 10^3/ul Absolute Basos (auto) 0 (0-0.2) 10^3/ul Absolute Nucleated RBC 0.01 10^3/ul Nucleated RBC % 0.1 INR (Anticoag Therapy) 0.81 L (0.89-1.11) Sodium 133 (133-145) mmol/L Potassium TNP Chloride 101 (101-111) mmol/L Carbon Dioxide 23 (22-32) mmol/L Anion Gap 9 (2-11) mmol/L BUN 16 (6-24) mg/dL Creatinine 0.85 (0.67-1.17) mg/dL Est GFR ( Amer) 120.8 (>60) Est GFR (Non-Af Amer) 93.9 (>60) BUN/Creatinine Ratio 18.8 (8-20) Glucose 117 H (70-100) mg/dL Lactic Acid (0.5-2.0) mmol/L Calcium 9.3 (8.6-10.3) mg/dL Magnesium 2.1 (1.9-2.7) mg/dL Total Bilirubin 0.40 (0.2-1.0) mg/dL AST TNP ALT 26 (7-52) U/L Alkaline Phosphatase 41 (34-104) U/L Total Protein 6.4 (6.4-8.9) g/dL Albumin 3.9 (3.2-5.2) g/dL Globulin 2.5 (2-4) g/dL Albumin/Globulin Ratio 1.6 (1-3) 05/18/17 05/18/17 Range/Units 17:12 18:12 WBC (3.5-10.8) 10^3/ul RBC (4.0-5.4) 10^6/ul Hgb (14.0-18.0) g/dl Hct (42-52) % MCV (80-94) fL MCH (27-31) pg MCHC (31-36) g/dl RDW (10.5-15) % Plt Count (150-450) 10^3/ul MPV (7.4-10.4) um3 Neut % (Auto) (38-83) % Lymph % (Auto) (25-47) % [place] % (Auto) (1-9) % Eos % (Auto) (0-6) % Baso % (Auto) (0-2) % Absolute Neuts (auto) (1.5-7.7) 10^3/ul Absolute Lymphs (auto) (1.0-4.8) 10^3/ul Absolute Monos (auto) (0-0.8) 10^3/ul Absolute Eos (auto) (0-0.6) 10^3/ul Absolute Basos (auto) (0-0.2) 10^3/ul Absolute Nucleated RBC 10^3/ul Nucleated RBC % INR (Anticoag Therapy) (0.89-1.11) Sodium (133-145) mmol/L Potassium 4.0 Chloride (101-111) mmol/L Carbon Dioxide (22-32) mmol/L Anion Gap (2-11) mmol/L BUN (6-24) mg/dL Creatinine (0.67-1.17) mg/dL Est GFR ( Amer) (>60) Est GFR (Non-Af Amer) (>60) BUN/Creatinine Ratio (8-20) Glucose (70-100) mg/dL Lactic Acid 1.9 (0.5-2.0) mmol/L Calcium (8.6-10.3) mg/dL Magnesium (1.9-2.7) mg/dL Total Bilirubin (0.2-1.0) mg/dL AST 15 ALT (7-52) U/L Alkaline Phosphatase (34-104) U/L Total Protein (6.4-8.9) g/dL Albumin (3.2-5.2) g/dL Globulin (2-4) g/dL Albumin/Globulin Ratio (1-3) ECG, personally reviewed: NSR rate 82, T-wave inversions CT brain WO, personally reviewed: L temporal encephalomalacia with overlying bone window from craniotomy Impression: 52M HX melanoma metastatic to brain presenting with new onset seizure DIAGNOSIS & PLAN Primary melanoma metastatic to brain with new onset seizure : prednisone 30mg this AM & repeat at HS, needs further consideration in AM : levetiracetam 1000mg IV in ED, continue 1000mg PO BID : MRI brain WO in AM : EEG in AM : Raghav Cantrell MD neurology consulted by ED, will follow : Sophie Melton MD oncology consulted, will assume care in AM : supplemental oxygen : seizure precautions : supportive care Secondary HTN : monitor Admission Rational: observation for new onset seizures DVTp: SCDs & heparin SQ Code Status: full HCP:
[2017-05-18] MEDS ORDERED: LORazepam INJ* 2 MG/ML 1 ML VIAL IV PRN (21:54)
--- NOTE | 2017-05-18 22:29 | ED ---
Sruthi Ceja Abhishek, scribed for Tariq Leonardo MD on 05/18/17 at 1704 . Neurological HPI - HPI Summary HPI Summary: This patient is a 72 year old M BISHOP form [facility] accompanied by 3 females with a chief complaint of seizure since 1134. Pts family member reported that the patient was slumped over shaking and drooling. Seizure episode lasted about 10 to 15 minutes. Patient did not recognize family member after the episode had finished. The patient rates the pain 0/10 in severity. Symptoms aggravated by nothing. Symptoms alleviated by nothing. Patient reports aphasia (intermittent). Patient denies falls and head injury. - History of Current Complaint Chief Complaint: EDSeizure Stated Complaint: POSSIBLE SEIZURE Hx Obtained From: Patient, Family/Law Librarian Onset/Duration: Sudden Onset, Started hours ago - 1134 Pain Intensity: 0 Pain Scale Used: 0-10 Numeric Character: Other: - patient was slumped over shaking and drooling. Episode Lasting: Seconds/Minutes - 10 to 15 minutes Number of Episodes: 1 Syncope Context: Witnessed, Loss of Consciousness: Yes, Activity - patient was slumped over shaking and drooling., At Rest Aggravating: Nothing Alleviating: Nothing Associated Signs and Symptoms: Positive: Memory Loss - Patient did not recognize family members shortly after seizure had ended., Seizure - Additional Pertinent History Primary Care Physician: GRIFFIN - Allergy/Home Medications Allergies/Adverse Reactions: Allergies Allergy/AdvReac Type Severity Reaction Status Date / Time No Known Allergies Allergy Verified 05/18/17 19:56 PMH/Surg Hx/FS Hx/Imm Hx Endocrine/Hematology History: Denies: Hx Diabetes Cardiovascular History: Reports: Hx Hypertension - no meds now Denies: Hx Pacemaker/ICD, Other Cardiovascular Problems/Disorders Respiratory History: Denies: Hx Asthma, Other Respiratory Problems/Disorders GI History: Denies: Other GI Disorders History: Denies: Hx Renal Disease Musculoskeletal History: Denies: Other Musculoskeletal History Sensory History: Denies: Hx Contacts or Glasses, Hx Hearing Aid Opthamlomology History: Denies: Hx Contacts or Glasses Neurological History: Denies: Other Neuro Impairments/Disorders Psychiatric History: Denies: Hx Panic Disorder - Cancer History Cancer Type, Location and Year: MALIGNANT [facility]ELANOMA Hx Chemotherapy: Yes Hx Radiation Therapy: Yes - Surgical History Surgery Procedure, Year, and Place: CRANIOTOMY November ;. PORT PLACED January; Hx Anesthesia Reactions: No - Immunization History Date of Tetanus Vaccine: u nk Date of Influenza Vaccine: unk Infectious Disease History: No Infectious Disease History: Denies: Traveled Outside the [place] in Last 30 Days - Family History Known Family History: Negative: Cardiac Disease, Hypertension, Diabetes - Social History Alcohol Use: Rare Alcohol Amount: 1 per year Substance Use Type: Reports: None Hx Tobacco Use: Yes Smoking Status (MU): Former Smoker Amount Used/How Often: pack a day for 30 years Review of Systems Constitutional: Negative Eyes: Negative ENT: Negative Cardiovascular: Negative Respiratory: Negative Gastrointestinal: Negative Genitourinary: Negative Positive: Other - Negative head injury and falls Skin: Negative Neurological: Other - Seizure (10 to 15 minutes) prior to ED arrival, aphasia ( intermittent) Positive: Syncope - LOC Psychological: Normal All Other Systems Reviewed And Are Negative: Yes Physical Exam - Summary Physical Exam Summary: Constitutional: Well-developed, Well-nourished, Alert. (-) Distressed Skin: Warm, Dry HENT: Normocephalic; Atraumatic, No tongue laceration Eyes: Conjunctiva normal Neck: Musculoskeletal ROM normal neck. (-) JVD, (-) Stridor, (-) Tracheal deviation Cardio: Rhythm regular, rate normal, Heart sounds normal; Intact distal pulses; The pedal pulses are 2+ and symmetric. Radial pulses are 2+ and symmetric. (-) Murmur Pulmonary/Chest wall: Effort normal. (-) Respiratory distress, (-) Wheezes, (-) Rales Abd: Soft. (-) Tenderness, ~(-) Distension, (-) Guarding, (-) Rebound Musculoskeletal: (-) Edema Lymph: (-) Cervical adenopathy Neuro: Alert, Oriented x3, Strength normal, Cranial nerves II-XII are grossly intact. (-) Dysmetria, (-) Nystagmus, (-) Ataxia by finger to nose testing, (-) Sensory deficit. Psych: Mood and affect Normal Genitourinary: No urination No signs of incontinence Triage Information Reviewed: Yes Vital Signs On Initial Exam: Initial Vitals Temp Pulse Resp BP Pulse Ox 98.8 F 84 23 145/89 94 05/18/17 16:41 05/18/17 16:41 05/18/17 16:41 05/18/17 16:41 05/18/17 16:41 Vital Signs Reviewed: Yes - [place] Coma Scale Coma Scale Total: 15 Diagnostics - Vital Signs Vital Signs Temp Pulse Resp BP Pulse Ox 05/18/17 16:57 82 16 95 05/18/17 16:49 82 23 94 05/18/17 16:46 145/89 05/18/17 16:41 98.8 F 84 23 145/89 94 - Laboratory Lab Results: Lab Results 05/18/17 05/18/17 05/18/17 Range/Units 17:12 17:12 17:12 WBC 14.8 H (3.5-10.8) 10^3/ul RBC 5.08 (4.0-5.4) 10^6/ul Hgb 15.8 (14.0-18.0) g/dl Hct 46 (42-52) % MCV 91 (80-94) fL MCH 31 (27-31) pg MCHC 34 (31-36) g/dl RDW 14 (10.5-15) % Plt Count 259 (150-450) 10^3/ul MPV 8 (7.4-10.4) um3 Neut % (Auto) 92.0 H (38-83) % Lymph % (Auto) 5.5 L (25-47) % [place] % (Auto) 2.3 (1-9) % Eos % (Auto) 0 (0-6) % Baso % (Auto) 0.2 (0-2) % Absolute Neuts (auto) 13.6 H (1.5-7.7) 10^3/ul Absolute Lymphs (auto) 0.8 L (1.0-4.8) 10^3/ul Absolute Monos (auto) 0.3 (0-0.8) 10^3/ul Absolute Eos (auto) 0 (0-0.6) 10^3/ul Absolute Basos (auto) 0 (0-0.2) 10^3/ul Absolute Nucleated RBC 0.01 10^3/ul Nucleated RBC % 0.1 INR (Anticoag Therapy) 0.81 L (0.89-1.11) Sodium 133 (133-145) mmol/L Potassium TNP Chloride 101 (101-111) mmol/L Carbon Dioxide 23 (22-32) mmol/L Anion Gap 9 (2-11) mmol/L BUN 16 (6-24) mg/dL Creatinine 0.85 (0.67-1.17) mg/dL Est GFR ( Amer) 120.8 (>60) Est GFR (Non-Af Amer) 93.9 (>60) BUN/Creatinine Ratio 18.8 (8-20) Glucose 117 H (70-100) mg/dL Lactic Acid (0.5-2.0) mmol/L Calcium 9.3 (8.6-10.3) mg/dL Magnesium 2.1 (1.9-2.7) mg/dL Total Bilirubin 0.40 (0.2-1.0) mg/dL AST TNP ALT 26 (7-52) U/L Alkaline Phosphatase 41 (34-104) U/L Total Protein 6.4 (6.4-8.9) g/dL Albumin 3.9 (3.2-5.2) g/dL Globulin 2.5 (2-4) g/dL Albumin/Globulin Ratio 1.6 (1-3) 05/18/17 05/18/17 Range/Units 17:12 18:12 WBC (3.5-10.8) 10^3/ul RBC (4.0-5.4) 10^6/ul Hgb (14.0-18.0) g/dl Hct (42-52) % MCV (80-94) fL MCH (27-31) pg MCHC (31-36) g/dl RDW (10.5-15) % Plt Count (150-450) 10^3/ul MPV (7.4-10.4) um3 Neut % (Auto) (38-83) % Lymph % (Auto) (25-47) % [place] % (Auto) (1-9) % Eos % (Auto) (0-6) % Baso % (Auto) (0-2) % Absolute Neuts (auto) (1.5-7.7) 10^3/ul Absolute Lymphs (auto) (1.0-4.8) 10^3/ul Absolute Monos (auto) (0-0.8) 10^3/ul Absolute Eos (auto) (0-0.6) 10^3/ul Absolute Basos (auto) (0-0.2) 10^3/ul Absolute Nucleated RBC 10^3/ul Nucleated RBC % INR (Anticoag Therapy) (0.89-1.11) Sodium (133-145) mmol/L Potassium 4.0 Chloride (101-111) mmol/L Carbon Dioxide (22-32) mmol/L Anion Gap (2-11) mmol/L BUN (6-24) mg/dL Creatinine (0.67-1.17) mg/dL Est GFR ( Amer) (>60) Est GFR (Non-Af Amer) (>60) BUN/Creatinine Ratio (8-20) Glucose (70-100) mg/dL Lactic Acid 1.9 (0.5-2.0) mmol/L Calcium (8.6-10.3) mg/dL Magnesium (1.9-2.7) mg/dL Total Bilirubin (0.2-1.0) mg/dL AST 15 ALT (7-52) U/L Alkaline Phosphatase (34-104) U/L Total Protein (6.4-8.9) g/dL Albumin (3.2-5.2) g/dL Globulin (2-4) g/dL Albumin/Globulin Ratio (1-3) Result Diagrams: 05/18/17 17:12 05/18/17 18:12 Lab Statement: Any lab studies that have been ordered have been reviewed, and results considered in the medical decision making process. - EKG 1656 EKG Rhythm: Sinus Rhythm - [address] Segment: Normal EKG Interpretation: RI is 154 Course/Dx - Course Course Of Treatment: This patient is a 72 year old M BIBA form [facility] accompanied by 3 females with a chief complaint of seizure since 1134. Pts family member reported that the patient was slumped over shaking and drooling. Patient reports aphasia (intermittent). Patient denies falls and head injury. An EKG at 1656 reveals 82 bpm with sinus rhythm and normal ST elevation. ED physician has reviewed this radiology report and agrees. We consulted with Dr. Melton at 1853 and he recommends for the patient to be admitted and that patient should receive EEG and MRI in the morning. We discussed patient care with Dr. Olivarez and they agree to accept patient care. We reviewed his previous medical records from [facility] and pt had a Ct showing post -operative changes only. Patient will be admitted into [facility]. Dx will be seizure. - Diagnoses Provider Diagnoses: Seizure - Physician Notifications Discussed Care Of Patient With: Lazaro Olivarez Time Discussed With Above Provider: 18:45 Instructed by Provider To: Admit As Observation Discharge - Discharge Plan Condition: Fair Disposition: ADMITTED TO [facility] documentation as recorded by the Sruthi eaton Abhishek accurately reflects the service I personally performed and the decisions made by , Tariq Leonardo MD.
[2017-05-18 22:43] LABS: Urine Bilirubin Negative (Negative); Urine Glucose Negative (Negative); Urine Nitrite Negative (Negative)
[2017-05-19] MEDS: Heparin VIAL(*) 5000 UNITS/ML VIAL (FIVE THOUSAND) SUBCUT SCH ×3 (06:47→22:01)
[2017-05-19] MEDS: Omeprazole CAP* 20 MG PO SCH (06:47)
[2017-05-19 07:07] LABS: Hematocrit 44 % (42-52); Mean Corpuscular HGB Conc 34 g/dl (31-36); Mean Corpuscular Hemoglobin 31 pg (27-31); Mean Corpuscular Volume 91 fL (80-94); Mean Platelet Volume 7 um3 (7.4-10.4); Red Blood Count 4.88 10^6/ul (4.0-5.4); Red Cell Distribution Width 14 % (10.5-15); White Blood Count 12.7 10^3/ul (3.5-10.8)
[2017-05-19] MEDS ORDERED: levETIRAcetam TAB* 500 MG PO SCH ×3 (09:00→10:35)
--- NOTE | 2017-05-19 09:25 | PN ---
Progress Note - Progress Note Date of Service: 05/19/17 SOAP: Subjective: []Seizure yesterday, shaking, drooling followed by disorientation and full recovery. First episode and full recovery, no residual neurologic symptoms. Breathing has been fine, no oxygen. Eating well, no thrush. Acetaminophen (Tylenol Tab*) 650 mg PO Q6H PRN PRN Reason: FEVER/PAIN Albuterol (Ventolin 2.5 Mg/3 Ml Neb.Reina*) 2.5 mg INH Q2H PRN PRN Reason: SOB/WHEEZING Docusate Sodium (Colace Cap*) 200 mg PO BID [facility] Last Admin: 05/18/17 21:52 Dose: Not Given Heparin Sodium (Porcine) (Heparin Vial(*)) 5,000 units SUBCUT Q8HR [facility] Last Admin: 05/19/17 06:47 Dose: 5,000 units Sodium Chloride (Ns 0.9% 1000 Ml*) 1,000 mls @ 75 mls/hr IV PER RATE [facility] Last Admin: 05/18/17 21:58 Dose: 75 mls/hr Levetiracetam (Keppra Tab*) 1,000 mg PO BID [facility] Lorazepam (Ativan Inj*) 2 mg IV Q5M PRN PRN Reason: seizure Melatonin (Melatonin (Nf)) 3 mg PO BEDTIME PRN; Protocol PRN Reason: Sleep Omeprazole (Prilosec Cap*) 20 mg PO DAILY@0600 [facility] Last Admin: 05/19/17 06:47 Dose: 20 mg Ondansetron HCl (Zofran Inj*) 4 mg IV Q6H PRN PRN Reason: NAUSEA Objective: [] Vital Signs Temp Pulse Resp BP Pulse Ox 97.9 F 72 16 127/83 95 05/19/17 03:40 05/19/17 03:40 05/19/17 03:40 05/19/17 03:40 05/19/17 03:40 HEENT - mucosa moist, no thrush CTA RRR S1S2 +BS, NT, ND Ext - No C/C/E Neuro - CN II-XII intact, normal strength, cerebella function, normal visual segura. 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 Has had a response to nivolumab but complicated by pneumonitis x 2 and now on a steriod taper. Had R0 resection of [employer] met at diagnosis and had been stable by MRI in February. Now with new onset seizures, likley [employer] progression. Plan: []1. Keppra to 500 mg bid for one week, then titrate up. 2. EEG done and report pending, MRI today 3. Plan Gamma knife for any new [employer] disease and continue with plans to start vemurafenib and cobimetinib immediately there after. 4. Will to to Dex from prednisone for familiarity of dosing in setting of [employer] disease. 5. D/C tomorrow am if no additional events and pending above.
[2017-05-19] MEDS: Docusate CAP* 100 MG PO SCH ×2 (09:46→20:36)
[2017-05-19] MEDS: levETIRAcetam TAB* 500 MG PO SCH ×2 (10:59→20:31)
[2017-05-19] MEDS: Dexamethasone TAB* 6 MG PO SCH ×2 (10:59→22:01)
--- NOTE | 2017-05-19 16:29 | RAD ---
Indication: Stroke. Image Sequences: Sagittal and axial T1, axial T2, FLAIR, diffusion and susceptibility weighted images of the brain were obtained. Comparison is made with previous exam dated March 19, 2017. Ventricular structures are midline. No midline shift is noted. There is gliosis in the left frontal temporal area likely from prior surgery. This is unchanged from previous exam. Atrophy is noted. The orbits and paranasal sinuses are otherwise unremarkable. Diffusion-weighted images demonstrate no restriction of diffusion. Mastoid air cells and paranasal sinuses are unremarkable. IMPRESSION: Gliosis and postoperative changes in the left temporal and frontal lobe. This is in the area of prior enhancement. No contrast was given currently. If clinically warranted, postcontrast study could be performed. The previous exam of March 19, 2017 demonstrates markedly diminished enhancement of the left temporal and frontal lobe.
[2017-05-20] MEDS: Heparin VIAL(*) 5000 UNITS/ML VIAL (FIVE THOUSAND) SUBCUT SCH (06:04)
[2017-05-20] MEDS: Omeprazole CAP* 20 MG PO SCH (06:04)
--- NOTE | 2017-05-20 06:28 | EEG ---
ELECTROENCEPHALOGRAPHY: DATE OF STUDY: 05/19/17 DATE OF DICTATION: 05/19/17 PATIENT OF: Dr. Garay and Dr. Melton.* CLINICAL PROBLEM: This is a 52-year-old man with history of melanoma of the left axilla metastatic to the brain, who had new onset of seizures. MEDICINES: Include: 1. Keppra. 2. Colace. 3. Prilosec. 5. Ativan. 6. Melatonin. 7. Zofran. REPORT: With the patient awake, background cerebral activity consists of moderate amplitude posterior dominant 10 Hz rhythm, which attenuates with eye opening and reappears with eye closure. At times, there is slowing in to the theta range and the patient becomes drowsy. Throughout the tracing, there is some delta slowing in the left frontal head region, is at times sharply contoured but no clear-cut epileptiform potentials. The patient never falls asleep. CLINICAL IMPRESSION: This EEG is abnormal because of left frontal slowing suggestive of an underlying structural lesion. Clinical correlation is recommended. [id number]/[facility] #: [id number] [facility]ENT[facility]ag[facility]
[2017-05-20 07:06] LABS: Hematocrit 43 % (42-52); Hemoglobin 14.5 g/dl (14.0-18.0); Mean Corpuscular HGB Conc 34 g/dl (31-36); Mean Corpuscular Hemoglobin 31 pg (27-31); Mean Corpuscular Volume 92 fL (80-94); Mean Platelet Volume 7 um3 (7.4-10.4); Red Blood Count 4.67 10^6/ul (4.0-5.4); Red Cell Distribution Width 14 % (10.5-15); White Blood Count 12.9 10^3/ul (3.5-10.8)
[2017-05-20 07:25] LABS: Albumin 3.5 g/dL (3.2-5.2); BUN/Creatinine Ratio 21.3 (8-20); Calcium 9.2 mg/dL (8.6-10.3); EGFR African American 129.6 (>60); EGFR Non-African American 100.7 (>60); Globulin 2.2 g/dL (2-4); Potassium 3.4 mmol/L (3.5-5.0); Total Bilirubin 0.4 mg/dL (0.2-1.0); Total Protein 5.7 g/dL (6.4-8.9)
[2017-05-20] MEDS: levETIRAcetam TAB* 500 MG PO SCH (08:03)
[2017-05-20] MEDS: Docusate CAP* 100 MG PO SCH (08:04)
[2017-05-20] MEDS: Dexamethasone TAB* 6 MG PO SCH (08:04)
[2017-05-20 08:05] VITALS: BP 148/89
[2017-05-20] MEDS ORDERED: Potassium Chlor TAB* 20 MEQ TAB.ER PO ONE (10:00)
== END 2017-05-20 11:40 | disposition home or self-care (01) ==
LOC: ED 16:24 → MED 19:08
PROVIDERS: ADMIT Hospitalist; ATTEND Internal Medicine Hematology & Oncology
DX: C43.59 Malignant melanoma of other part of trunk (principal); C79.31 Secondary malignant neoplasm of brain; R56.9 Unspecified convulsions; I10 Essential (primary) hypertension; R94.31 Abnormal electrocardiogram [ECG] [EKG]; Z79.899 Other long term (current) drug therapy; Z87.891 Personal history of nicotine dependence; R47.01 Aphasia
CPT/HCPCS: 36415; 70551; 80053; 81003; 83605; 83735; 85025; 85027; 85610; 93005; 95816; 96365; 96372; 99232; 99285; A9270-GY; G0378; J1644; J7512

== ENCOUNTER 2017-06-20 12:12 | Emergency (ER) | payer OTHER ==
[2017-06-20 14:08] LABS: ABS Basophils 0 10^3/ul (0-0.2); ABS Eosinophils 0 10^3/ul (0-0.6); ABS Lymphocytes 1.2 10^3/ul (1.0-4.8); ABS Monocytes 0.4 10^3/ul (0-0.8); ABS Neutrophils 8.1 10^3/ul (1.5-7.7); ABS Nucleated RBC 0.02 10^3/ul; Eosinophil % 0.2 % (0-6); Hematocrit 46 % (42-52); Hemoglobin 15.9 g/dl (14.0-18.0); Lymphocyte % 12.6 % (25-47); Mean Corpuscular HGB Conc 35 g/dl (31-36); Mean Corpuscular Hemoglobin 32 pg (27-31); Mean Corpuscular Volume 90 fL (80-94); Mean Platelet Volume 6 um3 (7.4-10.4); Nucleated Red Blood Cells % 0.2; Platelet Count 138 10^3/ul (150-450); Red Blood Count 5.06 10^6/ul (4.0-5.4); Red Cell Distribution Width 15 % (10.5-15); White Blood Count 9.7 10^3/ul (3.5-10.8)
[2017-06-20 14:23] LABS: EGFR Non-African American 91.4 (>60)
[2017-06-20 16:03] LABS: Urine Appearance Clear; Urine Blood Negative (Negative); Urine Color Yellow; Urine Ketones Trace (Negative); Urine Protein 1+(30 mg/dL) (Negative); Urine Specific Gravity 1.029 (1.010-1.030); Urine Urobilinogen Positive (Negative)
[2017-06-20] MEDS ORDERED: Iohexol 300* (CONTRAST) 10 ML SDV IV ONE (16:05)
--- NOTE | 2017-06-20 16:48 | RAD ---
INDICATION: Right lower quadrant abdominal pain. COMPARISON: Comparison is made with a prior outside CT of the abdomen and pelvis from December 17, 2016. Correlation is also made with a prior PET/CT study from May 07, 2017. TECHNIQUE: A CT scan of the abdomen and pelvis was performed with intravenous and oral contrast following intravenous injection of 129 ml of Omnipaque 300 nonionic contrast. Contiguous axial sections were obtained from the lung bases through the symphysis pubis. Images were reconstructed in the coronal and sagittal planes. FINDINGS: There is mild dependent right lower lobe subsegmental atelectasis. No pleural effusion is present. The liver and spleen are normal in size. The liver is decreased in attenuation consistent with fatty infiltration. There are 4 small hypervascular lesions present in the lateral segment of the left hepatic lobe. A couple of the lesions are seen as hypodense areas on the prior study outside CT. The imaging characteristics are nonspecific although would favor hemangiomas. No calcified gallstones are seen. The pancreas appears to be within normal limits. The kidneys and adrenal glands are normal in size. No hydronephrosis is seen. There are couple small bilateral renal cysts. The aorta is normal in caliber and demonstrates homogeneous contrast opacification. There is a mildly prominent 0.8 cm retroperitoneal lymph node in the left periaortic region which is unchanged from the prior study. There is a small hiatal hernia. The stomach, small and large bowel appear nondistended. The appendix is within normal limits. There is mild descending and sigmoid diverticulosis. There is no evidence for diverticulitis or colitis. No free intraperitoneal air or fluid is seen. No significant focal osseous abnormality is seen. IMPRESSION: 1. NO EVIDENCE FOR ACUTE FINDING. 2. THERE ARE SEVERAL HYPERVASCULAR LESIONS WITHIN THE LEFT LOBE OF THE LIVER. THE IMAGING CHARACTERISTICS ARE NONSPECIFIC ALTHOUGH WOULD FAVOR HEMANGIOMAS. RECOMMEND A FOLLOW-UP OUTPATIENT MRI OF THE ABDOMEN WITHOUT AND WITH CONTRAST FOR FURTHER EVALUATION IN THIS PATIENT WITH A HISTORY OF MELANOMA.
[2017-06-20] MEDS ORDERED: NS 0.9% 1000 ML* 1,000 ML IV ONE (17:37)
[2017-06-20 20:00] VITALS: BP 167/102
--- NOTE | 2017-07-01 11:42 | ED ---
Ravi Ceja Angela, scribed for Tariq Leonardo MD on 06/20/17 at 1349 . Abdominal Pain/Male - HPI Summary HPI Summary: This pt is a 52 y/o male presenting to [facility], accompanied by and sister, c/ o right sided abd pain since 01:30. Pt took a shower after onset of abd pain and felt better, so he went to sleep. Pt woke up at 07:00 today with severe abd pain, sat up and was "wincing." notes the pt had pain radiating down his right leg. His pain is aggravated with sitting down. Currently pt denies any abd pain. Denies vomiting, diarrhea, fever, chills, back pain. Per , pt is looking flushed, more than normal. Pt has a rash on his back, but his PCP is aware of this. Pt's oncologist is Dr. Melton. PMHx includes stage 4 melanoma (under left arm) that has metastasized to his brain. Pt had 1 tumor removed in November 2016. 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 Pt is currently on oral chemo BID, his last dose was today. Has had chemo since January 2017. - History of Current Complaint Chief Complaint: EDAbdPain Stated Complaint: ABD PAIN Time Seen by Provider: 06/20/17 13:38 Hx Obtained From: Patient, Family/[place] Onset/Duration: Lasting Hours, Resolved Timing: Lasting Hours Severity Currently: Mild Pain Intensity: 1 Pain Scale Used: 0-10 Numeric Location: Other - right sided abd pain Radiates: Yes Radiates to: Other - right leg Aggravating Factor(s): Other: - sitting up Alleviating Factor(s): Nothing Associated Signs And Symptoms: Positive: Other - POS: abd pain, flushed. Negative: Fever, Back Pain, Nausea, Vomiting, Diarrhea - Allergies/Home Medications Allergies/Adverse Reactions: Allergies Allergy/AdvReac Type Severity Reaction Status Date / Time No Known Allergies Allergy Verified 06/20/17 12:14 PMH/Surg Hx/FS Hx/Imm Hx Endocrine/Hematology History: Denies: Hx Diabetes Cardiovascular History: Reports: Hx Hypertension - no meds now Denies: Hx Pacemaker/ICD, Other Cardiovascular Problems/Disorders Respiratory History: Denies: Hx Asthma, Other Respiratory Problems/Disorders GI History: Denies: Other GI Disorders History: Denies: Hx Renal Disease Musculoskeletal History: Denies: Other Musculoskeletal History Sensory History: Denies: Hx Contacts or Glasses, Hx Hearing Aid Opthamlomology History: Denies: Hx Contacts or Glasses Neurological History: Denies: Other Neuro Impairments/Disorders Psychiatric History: Denies: Hx Panic Disorder - Cancer History Cancer Type, Location and Year: MALIGNANT MELANOMA Stage 4, metastasized to brain. Hx Chemotherapy: Yes Hx Radiation Therapy: Yes - Surgical History Surgery Procedure, Year, and Place: CRANIOTOMY 12/19/2016 [place]. TONSIL[place] AGE 3. [place] [place] Anesthesia Reactions: No - Immunization History Date of Tetanus Vaccine: u nk Date of Influenza Vaccine: unk Infectious Disease History: No Infectious Disease History: Denies: Traveled Outside the [place] in Last 30 Days - Family History Known Family History: Negative: Cardiac Disease, Hypertension, Diabetes - Social History Alcohol Use: Rare Alcohol Amount: 1 per year Substance Use Type: Reports: None Hx Tobacco Use: Yes Smoking Status (MU): Former Smoker Amount Used/How Often: pack a day for 30 years Review of Systems Constitutional: Other - flushed face Negative: Fever, Chills Negative: Erythema Negative: Sore Throat Negative: Chest Pain Negative: Shortness Of Breath, Cough Positive: Abdominal Pain. Negative: Vomiting, Nausea Negative: dysuria, hematuria Negative: Myalgia, Edema, Other - back pain Positive: Rash Neurological: Other - NEG: dizziness All Other Systems Reviewed And Are Negative: Yes Physical Exam - Summary Physical Exam Summary: Constitutional: Well-developed, Well-nourished, Alert. (-) Distressed Skin: Warm, Dry. Flushed. HENT: Normocephalic; Atraumatic Eyes: Conjunctiva normal Neck: Musculoskeletal ROM normal neck. (-) JVD, (-) Stridor, (-) Tracheal deviation Cardio: Rhythm regular, rate normal, Heart sounds normal; Intact distal pulses; The pedal pulses are 2+ and symmetric. Radial pulses are 2+ and symmetric. (-) Murmur Pulmonary/Chest wall: Effort normal. (-) Respiratory distress, (-) Wheezes, (-) Rales Abd: Soft, abd pain reported with sitting up but no palpable hernias. (-) Distension, (-) Guarding, (-) Rebound Musculoskeletal: (-) Edema Lymph: (-) Cervical adenopathy Neuro: Alert, Oriented x3 Psych: Mood and affect Normal Triage Information Reviewed: Yes Vital Signs On Initial Exam: Initial Vitals Temp Pulse Resp BP Pulse Ox 97.3 F 99 16 145/107 96 06/20/17 12:14 06/20/17 12:14 06/20/17 12:14 06/20/17 12:14 06/20/17 12:14 Vital Signs Reviewed: Yes Diagnostics - Vital Signs Vital Signs Temp Pulse Resp BP Pulse Ox 06/20/17 12:14 97.3 F 99 16 145/107 96 - Laboratory Result Diagrams: 06/20/17 13:52 06/20/17 13:52 Lab Statement: Any lab studies that have been ordered have been reviewed, and results considered in the medical decision making process. - CT CT abdomen/pelvis CT Interpretation: Positive (See Comments) - IMPRESSION: 1. No evidence for acute finding. 2. There are several hypervascular lesions within the left lobe of the liver. The imaging characteristics are nonspecific although would favor hemangiomas. Recommend a follow-up outpatient MRI of the abdomen without and with contrast for further evaluation in this patient with a history of melanoma. Dr. Leonardo has reviewed this radiology report. CT Interpretation Completed By: Radiologist - EKG 12:20 Cardiac Rate: NL EKG Rhythm: Sinus Rhythm - at 84 bpm EKG Interpretation: No STEMI Re-Evaluation - Re-Evaluation First Eval Re-Evaluation Time: 19:05 Comment: I reviewed Dr. Cisneros's recommendations with the pt and family. Abdominal Pain Fem Course/Dx - Course Course Of Treatment: This pt is a 52 y/o male presenting to [facility], accompanied by and sister, c/o right sided abd pain since 01:30. Pt felt better and went to sleep. Woke up at 07:00 today, sat up and was "wincing." notes the pt had pain going down his leg. His pain is aggravated with sitting down. Currently pt denies any abd pain. Denies vomiting, diarrhea, fever, chills, back pain. Per , pt is looking flushed, more than normal. Pt has a rash on his back, but his PCP is aware of this. Pt's oncologist is Dr. Melton. Lactic acid is 3.6. CT abdomen/pelvis shows 1. No evidence for acute finding. 2. There are several hypervascular lesions within the left lobe of the liver. The imaging characteristics are nonspecific although would favor hemangiomas. Recommend a follow-up outpatient MRI of the abdomen without and with contrast for further evaluation in this patient with a history of melanoma. I discussed pt care with Dr. Cisneros, oncologist, who reports that the pt's symptoms including abd pain and flushing can be attributed to chemotherapy. She recommends for the pt to stop chemotherapy until follow up with Dr. Melton in 2-3 days. - Diagnoses Provider Diagnoses: Medication adverse effect - Provider Notifications Discussed Care Of Patient With: Tiffanie Cisneros Time Discussed With Above Provider: 19:01 Instructed by Provider To: Other - I discussed pt care with Dr. Cisneros, oncologist, who reports that the pt's symptoms including abd pain and flushing can be attributed to chemotherapy. She recommends for the pt to stop chemotherapy until follow up with Dr. Melton in 2-3 days. Discharge - Discharge Plan Condition: Stable Disposition: HOME Patient Education Materials: Adverse Drug Reaction (ED) Referrals: Madi Melton MD [Primary Care Provider] - (2-3 days) Additional Instructions: STOP chemotherapy until follow up next week with Dr. Melton. Follow up with Dr. Melton in 2-3 days. RETURN TO THE EMERGENCY DEPARTMENT FOR CHANGING OR WORSENING SYMPTOMS. The documentation as recorded by the Ravi eaton Angela accurately reflects the service I personally performed and the decisions made by , Tariq Leonardo MD.
== END 2017-06-20 20:12 | disposition home or self-care (01) ==
LOC: ED 12:12
DX: T50.905A Adverse effect of unspecified drugs, medicaments and biological substances, initial encounter (principal); R10.9 Unspecified abdominal pain; I10 Essential (primary) hypertension; Z87.891 Personal history of nicotine dependence; Y92.9 Unspecified place or not applicable
CPT/HCPCS: 36415; 74177; 80053; 80177; 81003; 81015; 83605; 83690; 85025; 86140; 93005; 96360; 99283; Q9967

== ENCOUNTER 2017-08-03 04:54 | Emergency (ER) | payer OTHER ==
[2017-08-03] MEDS ORDERED: NS 0.9% 1000 ML*IV.FLUID IV ONE (05:44)
[2017-08-03] MEDS ORDERED: Vancomycin(*) 1,000 MG in NS 0.9% 250 ML* 250 ML IVPB ONE (05:45)
[2017-08-03] MEDS ORDERED: Acetaminophen TAB* 325 MG PO ONE (05:45)
[2017-08-03] MEDS ORDERED: Piperacillin/Tazobac ADVAN(*) 3.375 GM in NS 0.9% 100 ML* 100 ML IVPB ONE (05:46)
[2017-08-03 06:50] LABS: ABS Basophils 0.1 10^3/ul (0-0.2); ABS Eosinophils 0 10^3/ul (0-0.6); ABS Lymphocytes 1.5 10^3/ul (1.0-4.8); ABS Monocytes 1.4 10^3/ul (0-0.8); ABS Neutrophils 5.2 10^3/ul (1.5-7.7); ABS Nucleated RBC 0 10^3/ul; Eosinophil % 0 % (0-6); Hematocrit 34 % (42-52); Hemoglobin 11.8 g/dl (14.0-18.0); Lymphocyte % 18.9 % (25-47); Mean Corpuscular HGB Conc 35 g/dl (31-36); Mean Corpuscular Hemoglobin 31 pg (27-31); Mean Corpuscular Volume 90 fL (80-94); Mean Platelet Volume 7 um3 (7.4-10.4); Nucleated Red Blood Cells % 0.1; Platelet Count 300 10^3/ul (150-450); Red Blood Count 3.79 10^6/ul (4.0-5.4); Red Cell Distribution Width 17 % (10.5-15); White Blood Count 8.2 10^3/ul (3.5-10.8)
[2017-08-03 06:55] LABS: INR 1.13 (0.77-1.02)
[2017-08-03 07:03] LABS: EGFR Non-African American 96.5 (>60)
--- NOTE | 2017-08-03 07:04 | ED ---
Arslan Ceja Tecjoon, scribed for Sarath Silva MD on 08/03/17 at 0604 . HPI Febrile Illness - HPI Summary HPI Summary: This patient is a 52 year [facility] by with a chief complaint of febrile illness since 0100 today. Patient has a hx of melanoma in head and under arm. Patient states his fever went up to 103.2 at home. Symptoms aggravated by nothing. Symptoms alleviated by nothing. The patient treated the sx with Tylenol at around 0100. Patient additionally reports fatigue. - History of Current Complaint Chief Complaint: EDFever Time Seen by Provider: 08/03/17 05:13 Hx Obtained From: Patient Onset/Duration: Started Hours Ago, Still Present Time of Onset: 01:00 Timing: Constant Temperature: 39.4 C Initial Severity: Severe Current Severity: Mild Pain Intensity: 0 Pain Scale Used: 0-10 Numeric Aggravating Factors: Nothing Alleviating Factors: OTC Medicine - tylenol Associated Signs and Symptoms: Other: - fatigue - Additional Pertinent History Primary Care Physician: EVER - Allergy/Home Medications Allergies/Adverse Reactions: Allergies Allergy/AdvReac Type Severity Reaction Status Date / Time No Known Allergies Allergy Verified 06/20/17 12:14 PMH/Surg Hx/FS Hx/Imm Hx Previously Healthy: No Endocrine/Hematology History: Denies: Hx Diabetes Cardiovascular History: Reports: Hx Hypertension Denies: Hx Pacemaker/ICD, Other Cardiovascular Problems/Disorders Respiratory History: Denies: Hx Asthma, Other Respiratory Problems/Disorders GI History: Denies: Other GI Disorders History: Denies: Hx Renal Disease Musculoskeletal History: Denies: Other Musculoskeletal History Sensory History: Denies: Hx Contacts or Glasses, Hx Hearing Aid Opthamlomology History: Denies: Hx Contacts or Glasses Neurological History: Denies: Other Neuro Impairments/Disorders Psychiatric History: Denies: Hx Panic Disorder - Cancer History Cancer Type, Location and Year: MALIGNANT MELANOMA Hx Chemotherapy: Yes - PRESENTLY - BUT ON HOLD RIGHT NOW Hx Radiation Therapy: Yes - FINISHED 02/06 - Surgical History Surgery Procedure, Year, and Place: CRANIOTOMY 12/19/2016 [place]. TONSILS AGE 3. [place] [place] Hx Anesthesia Reactions: No - Immunization History Date of Tetanus Vaccine: u nk Date of Influenza Vaccine: unk Infectious Disease History: No Infectious Disease History: Denies: Traveled Outside the US in Last 30 Days - Family History Known Family History: Negative: Cardiac Disease, Hypertension, Diabetes - Social History Lives: With Family Alcohol Use: Rare Alcohol Amount: 1 per year Hx Substance Use: No Substance Use Type: Reports: None Hx Tobacco Use: No Smoking Status (MU): Never Smoked Tobacco Amount Used/How Often: pack a day for 30 years Review of Systems Positive: Fever, Fatigue Positive: Weakness All Other Systems Reviewed And Are Negative: Yes Physical Exam - Summary Physical Exam Summary: VITAL SIGNS: Reviewed. GENERAL: Patient is a well-developed and nourished male who is lying comfortable in the stretcher. Patient is not in any acute respiratory distress. HEAD AND FACE: No signs of trauma. No ecchymosis, hematomas or skull depressions. No sinus tenderness. EYES: PERRLA, EOMI x 2, No injected conjunctiva, no nystagmus. EARS: Hearing grossly intact. Ear canals and tympanic membranes are within normal limits. MOUTH: Oropharynx within normal limits. NECK: Supple, trachea is midline, no adenopathy, no JVD, no carotid bruit, no c- spine tenderness, neck with full ROM. CHEST: Symmetric, no tenderness at palpation LUNGS: Clear to auscultation bilaterally. No wheezing or crackles. CVS: Regular rate and rhythm, S1 and S2 present, no murmurs or gallops appreciated. ABDOMEN: Soft, non-tender. No signs of distention. No rebound no guarding, and no masses palpated. Bowel sounds are normal. EXTREMITIES: FROM in all major joints, no edema, no cyanosis or clubbing. NEURO: Alert and oriented x 3. No acute neurological deficits. Speech is normal and follows commands. SKIN: Dry and warm Triage Information Reviewed: Yes Vital Signs On Initial Exam: Initial Vitals Temp Pulse Resp BP Pulse Ox 100.2 F 127 16 153/104 96 08/03/17 05:04 08/03/17 05:04 08/03/17 05:04 08/03/17 05:04 08/03/17 05:04 Vital Signs Reviewed: Yes Diagnostics - Vital Signs Vital Signs Temp Pulse Resp BP Pulse Ox 08/03/17 05:04 100.2 F 127 16 153/104 96 - Laboratory Result Diagrams: 08/03/17 06:18 08/03/17 06:18 Lab Statement: Any lab studies that have been ordered have been reviewed, and results considered in the medical decision making process. - Radiology CXR Xray Interpretation: No Acute Changes - CXR reveals, per radiologist, IMPRESSION : No Acute Process. ED physician has reviewed this radiology report. Radiology Interpretation Completed By: Radiologist Course/Dx - Course Course Of Treatment: This patient is a 52 year old male presenting to [facility] accompanied by with a chief complaint of febrile illness since 0100 today. Patient has a hx of melanoma in head and under arm. CXR reveals, per radiologist , IMPRESSION: No Acute Process. ED physician has reviewed this radiology report. Bloodwork Obtained. Urinalysis Obtained. In the ED course the patient was given Tylenol, Vancomycin, Piperacillin. Patient will be diagnosed with fever and signed out to Dr. Henson at end of shift, awaiting imaging results. - Diagnoses Provider Diagnoses: Fever Discharge - Discharge Plan Condition: Stable Disposition: HOME Discharge Disposition Comment: This patient will be signed out to Dr. Henson at end of shift. Patient Education Materials: Fever in Adults (ED), Viral Syndrome (ED) Referrals: Madi Melton MD [Primary Care Provider] - 1 Day (PLEASE F/U TOMORROW) Additional Instructions: Return to the ED if you develop fever, rigors, cough, diarrhea. The documentation as recorded by the Arslan eaton Tecjoon accurately reflects the service I personally performed and the decisions made by me, Sarath Silva MD.
[2017-08-03 08:43] VITALS: BP 124/88
--- NOTE | 2017-08-03 08:54 | RAD ---
Indication: Confusion. Fever. History of melanoma on oral chemotherapy. Comparison: June 30, 2017 MRI brain. May 18, 2017 CT. Technique: Noncontrast CT vertex of skull through foramen magnum. Report: Previous LEFT frontotemporal craniotomy. No significant change in decreased density at least in part reflecting encephalomalacia at the LEFT frontal and temporal lobes compared with the May 18, 2017 CT. Unchanged minimal hyperintensity of the dura subjacent to the craniotomy site. No new intra or extra-axial lesions or intra or extra-axial hemorrhage evident. Negative for sulcal effacement. Mild ex vacuo enlargement of the frontal horn of the LEFT lateral ventricle. Patent basal cisterns. Unremarkable orbital contents. No suspicious calvarial or skull base lesions evident. Clear visualized paranasal sinuses and mastoid air spaces. Unremarkable scalp. IMPRESSION: 1. No significant change in decreased density at least in part reflecting encephalomalacia at the LEFT frontal and temporal lobes compared with the May 18, 2017 CT. Unchanged minimal hyperintensity of the dura subjacent to the craniotomy site. 2. No new intra or extra-axial lesions, intracranial hemorrhage or mass effect evident..
--- NOTE | 2017-08-03 11:02 | RAD ---
Indication: Fever. Current melanoma patient. Comparison: May 18, 2017 Technique: Upright AP 0600 hours Report: Tip of RIGHT chest port at level of RIGHT atrium. Clear lungs and pleural spaces. Negative for pneumothorax. The heart, pulmonary vasculature, and mediastinal contours are unremarkable. Unremarkable osseous structures and soft tissue contours. IMPRESSION: No evidence for acute intrathoracic disease.
== END 2017-08-03 08:56 | disposition home or self-care (01) ==
LOC: ED 04:54
DX: R50.9 Fever, unspecified (principal); R53.83 Other fatigue; R53.1 Weakness
CPT/HCPCS: 36415; 70450; 71045; 80053; 83605; 85025; 85610; 85730; 86140; 87040; 87502; 96365; 99283; A9270-GY; J2543; J3370

== ENCOUNTER 2017-08-03 14:09 | Emergency (ER) | payer OTHER ==
[2017-08-03] MEDS ORDERED: Ibuprofen TAB* 600 MG PO ONE (14:17)
[2017-08-03] MEDS: NS 0.9% 1000 ML* 2,000 ML IV ONE ×2 (14:40→15:01)
[2017-08-03 14:42] LABS: ABS Basophils 0 10^3/ul (0-0.2); ABS Eosinophils 0 10^3/ul (0-0.6); ABS Lymphocytes 0.9 10^3/ul (1.0-4.8); ABS Monocytes 1.1 10^3/ul (0-0.8); ABS Neutrophils 6.4 10^3/ul (1.5-7.7); ABS Nucleated RBC 0 10^3/ul; Eosinophil % 0 % (0-6); Hematocrit 34 % (42-52); Hemoglobin 11.7 g/dl (14.0-18.0); Lymphocyte % 10.4 % (25-47); Mean Corpuscular HGB Conc 35 g/dl (31-36); Mean Corpuscular Hemoglobin 31 pg (27-31); Mean Corpuscular Volume 90 fL (80-94); Mean Platelet Volume 6 um3 (7.4-10.4); Nucleated Red Blood Cells % 0; Platelet Count 277 10^3/ul (150-450); Red Blood Count 3.77 10^6/ul (4.0-5.4); Red Cell Distribution Width 17 % (10.5-15); White Blood Count 8.4 10^3/ul (3.5-10.8)
[2017-08-03 14:48] LABS: INR 1.07 (0.77-1.02)
[2017-08-03 14:58] LABS: EGFR Non-African American 91.4 (>60)
[2017-08-03 16:19] LABS: Urine Appearance Clear; Urine Blood Negative (Negative); Urine Color Yellow; Urine Ketones Negative (Negative); Urine Protein Negative (Negative); Urine Specific Gravity 1.017 (1.010-1.030); Urine Urobilinogen Positive (Negative)
[2017-08-03] MEDS ORDERED: Iohexol 350* (CONTRAST) 500 ML MDV IV ONE (18:11)
--- NOTE | 2017-08-03 18:58 | RAD ---
INDICATION: Shortness of breath. Fever, chills, wheezing. Diagnosed with viral infection. Assess for PE. History of malignant melanoma. COMPARISON: August 03, 2017 chest radiograph and May 03, 2017 CT. TECHNIQUE: Multidetector CT images were obtained from the lung apices to the upper abdomen with 81 mL Omnipaque 350 IV contrast. Pulmonary angiogram protocol. Multiplanar reformation including with maximum intensity projection. REPORT: Negative for alveolar consolidation, focal pulmonary lesions, pleural effusion, pneumothorax. Thoracic lymphadenopathy. Dominant 2 cm short axis LEFT axillary node is decreased from 2.4 cm previously. Dominant LEFT paratracheal 0.9 cm short axis node is increased from 0.6 cm previously. Dominant RIGHT paratracheal 1.2 cm short axis node is increased from 1.0 cm previously. 1.5 cm subcarinal node is increased from 1.0 cm previously. 1.2 cm RIGHT infrahilar lymph node is grossly unchanged. Upper normal heart size. Negative for pericardial effusion. Normal diameter thoracic aorta with mild atherosclerotic plaque. No filling defects are identified from the main to the segmental pulmonary arteries to indicate presence of a pulmonary embolism. Suboptimal contrast opacification precludes accurate assessment of the subsegmental pulmonary arteries. Unremarkable Limited images through the upper abdomen. Negative for suspicious thoracic osseous lesions. IMPRESSION: 1. Mildly limited CT pulmonary angiogram with accurate assessment only to the segmental level without evidence for pulmonary embolism. Suboptimal IV small caliber line limits exam. 2. Overall there is interval worsening of thoracic lymphadenopathy.
[2017-08-03] MEDS ORDERED: Oseltamivir CAP* 75 MG CAP PO ONE (19:34)
[2017-08-03 20:16] VITALS: BP 121/84
--- NOTE | 2017-08-03 21:38 | ED ---
Quin Ceja Julia, scribed for Kurt Ribeiro MD on 08/03/17 at 1440 . Respiratory - HPI Summary HPI Summary: This patient is a 52 year old M presenting to [facility] accompanied by his with a chief complaint of coughing and wheezing since last evening worsening around noon today. reports shivering uncontrollably, highest temperate of 103.5 at 3:00am, and general weakness. The patient rates the symptoms 2/10 in severity. Patient states Im feeling good. states he was not symptomatic yesterday. Pt has recent dx of viral infection and sent home today. 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 Pt's PCP is Dr. Melton. - History of Current Complaint Chief Complaint: EDGeneral Stated Complaint: LOW O2/FEVER Time Seen by Provider: 08/03/17 14:23 Hx Obtained From: Patient, Family/Supervisor [employer] Onset/Duration: Lasting Hours Timing: Constant Pain Intensity: 2 Character: Wheezing, Cough (Nonproductive) Associated Signs and Symptoms: Fever, SOB, Wheezing Related History: Similar Episode/Dx as - recent dx of viral syndrome - Allergy/Home Medications Allergies/Adverse Reactions: Allergies Allergy/AdvReac Type Severity Reaction Status Date / Time No Known Allergies Allergy Verified 06/20/17 12:14 Home Medications: Home Medications Dabrafenib Mesylate [Tafinlar] 100 mg PO BID 08/03/17 [History Confirmed ] Omeprazole CAP* [Prilosec CAP* 20 MG] 20 mg PO DAILY 08/03/17 [History Confirmed 08/03/17] Potassium Chlor TAB* [Klor Con ER TAB*] 20 meq PO DAILY 08/03/17 [History Confirmed 08/03/17] Prochlorperazine TAB* [Compazine Tab*] 10 mg PO Q6H PRN 08/03/17 [History Confirmed 08/03/17] Trametinib Dimethyl Sulfoxide [Mekinist] 2 mg PO DAILY 08/03/17 [History Confirmed 08/03/17] amLODIPine TAB* [Norvasc 5 mg TAB*] 10 mg PO DAILY 08/03/17 [History Confirmed 08/03/17] levETIRAcetam TAB* [Keppra TAB*] 1,000 mg PO BID 08/03/17 [History Confirmed 05/10] PMH/Surg Hx/FS Hx/Imm Hx Endocrine/Hematology History: Denies: Hx Diabetes Cardiovascular History: Reports: Hx Hypertension Denies: Hx Pacemaker/ICD, Other Cardiovascular Problems/Disorders Respiratory History: Denies: Hx Asthma, Other Respiratory Problems/Disorders GI History: Denies: Other GI Disorders History: Denies: Hx Renal Disease Musculoskeletal History: Denies: Other Musculoskeletal History Sensory History: Denies: Hx Contacts or Glasses, Hx Hearing Aid Opthamlomology History: Denies: Hx Contacts or Glasses Neurological History: Denies: Other Neuro Impairments/Disorders Psychiatric History: Denies: Hx Panic Disorder - Cancer History Cancer Type, Location and Year: MALIGNANT MELANOMA Hx Chemotherapy: Yes - PRESENTLY - BUT ON HOLD RIGHT NOW Hx Radiation Therapy: Yes - FINISHED 02/06 - Surgical History Surgery Procedure, Year, and Place: CRANIOTOMY 12/19/2016 [place]. TONSILS AGE 3. [place] [place] Anesthesia Reactions: No - Immunization History Date of Tetanus Vaccine: u nk Date of Influenza Vaccine: unk Infectious Disease History: No Infectious Disease History: Denies: Traveled Outside the [place] in Last 30 Days - Family History Known Family History: Negative: Cardiac Disease, Hypertension, Diabetes - Social History Alcohol Use: Rare Alcohol Amount: 1 per year Hx Substance Use: No Substance Use Type: Reports: None Hx Tobacco Use: No Smoking Status (MU): Never Smoked Tobacco Amount Used/How Often: pack a day for 30 years Review of Systems Positive: Fever, Chills - shaking unconrollably, Fatigue - and weakness Positive: Shortness Of Breath, Cough, Other - wheezing All Other Systems Reviewed And Are Negative: Yes Physical Exam - Summary Physical Exam Summary: Appearance: The patient is well-nourished in no acute distress and in no acute pain. Skin: The skin is warm and dry and skin color reflects adequate perfusion. HEENT: The head is normocephalic and atraumatic. The pupils are equal and reactive. The conjunctivae are clear and without drainage. Nares are patent and without drainage. Mouth reveals moist mucous membranes and the throat is without erythema and exudate. The external ears are intact. The ear canals are patent and without drainage. The tympanic membranes are intact. Neck: the neck is supple with full range of motion and non-tender. There are no carotid bruits. There is no neck vein distension. Respiratory: Chest is non-tender. Lungs are clear to auscultation and breath sounds are symmetrical and equal. Patient has tachypnea Cardiovascular: Heart is tachycardic with regular rhythm. There is no murmur or rub auscultated. There is no peripheral edema and pulses are symmetrical and equal. Abdomen: The abdomen is soft and non-tender. There are normal bowel sounds heard in all four quadrants and there is no organomegaly palpated. Musculoskeletal: There is no back tenderness noted. Extremities are non-tender with full range of motion. There is good capillary refill. There is no peripheral edema or calf tenderness elicited. Neurological: Patient is alert and oriented to person, place and time. The patient has symmetrical motor strength in all four extremities. Cranial nerves are grossly intact. Deep tendon reflexes are symmetrical and equal in all four extremities. Psychiatric: The patient has an appropriate affect and does not exhibit any anxiety or depression. Patient is slightly confused and was not very cooperative with deep breathing. Triage Information Reviewed: Yes Vital Signs On Initial Exam: Initial Vitals Temp Pulse Resp BP Pulse Ox 103.5 F 141 22 138/82 94 08/03/17 14:12 08/03/17 14:12 08/03/17 14:12 08/03/17 14:12 08/03/17 14:12 Vital Signs Reviewed: Yes Diagnostics - Vital Signs Vital Signs Temp Pulse Resp BP Pulse Ox 08/03/17 14:12 103.5 F 141 22 138/82 94 - Laboratory Lab Results: Lab Results 08/03/17 08/03/17 08/03/17 Range/Units 14:30 14:30 14:30 WBC 8.4 (3.5-10.8) 10^3/ul RBC 3.77 L (4.0-5.4) 10^6/ul Hgb 11.7 L (14.0-18.0) g/dl Hct 34 L (42-52) % MCV 90 (80-94) fL MCH 31 (27-31) pg MCHC 35 (31-36) g/dl RDW 17 H (10.5-15) % Plt Count 277 (150-450) 10^3/ul MPV 6 L (7.4-10.4) um3 Neut % (Auto) 76.3 (38-83) % Lymph % (Auto) 10.4 L (25-47) % Harper % (Auto) 12.8 H (1-9) % Eos % (Auto) 0 (0-6) % Baso % (Auto) 0.5 (0-2) % Absolute Neuts (auto) 6.4 (1.5-7.7) 10^3/ul Absolute Lymphs (auto) 0.9 L (1.0-4.8) 10^3/ul Absolute Monos (auto) 1.1 H (0-0.8) 10^3/ul Absolute Eos (auto) 0 (0-0.6) 10^3/ul Absolute Basos (auto) 0 (0-0.2) 10^3/ul Absolute Nucleated RBC 0 10^3/ul Nucleated RBC % 0 INR (Anticoag Therapy) 1.07 H (0.77-1.02) Sodium 134 (133-145) mmol/L Potassium 3.6 (3.5-5.0) mmol/L Chloride 103 (101-111) mmol/L Carbon Dioxide 25 (22-32) mmol/L Anion Gap 6 (2-11) mmol/L BUN 12 (6-24) mg/dL Creatinine 0.87 (0.67-1.17) mg/dL Est GFR ( Amer) 117.6 (>60) Est GFR (Non-Af Amer) 91.4 (>60) BUN/Creatinine Ratio 13.8 (8-20) Glucose 147 H (70-100) mg/dL Lactic Acid (0.5-2.0) mmol/L Calcium 9.0 (8.6-10.3) mg/dL Total Bilirubin 0.60 (0.2-1.0) mg/dL AST 20 (13-39) U/L ALT 18 (7-52) U/L Alkaline Phosphatase 50 (34-104) U/L Troponin I 0.00 (<0.04) ng/mL Total Protein 6.6 (6.4-8.9) g/dL Albumin 3.5 (3.2-5.2) g/dL Globulin 3.1 (2-4) g/dL Albumin/Globulin Ratio 1.1 (1-3) Urine Color Urine Appearance Urine pH (5-9) Ur Specific [place] (1.010-1.030) Urine Protein (Negative) Urine Ketones (Negative) Urine Blood (Negative) Urine Nitrate (Negative) Urine Bilirubin (Negative) Urine Urobilinogen (Negative) Ur Leukocyte Esterase (Negative) Urine Glucose (Negative) 08/03/17 08/03/17 08/03/17 Range/Units 14:30 16:09 18:26 WBC (3.5-10.8) 10^3/ul RBC (4.0-5.4) 10^6/ul Hgb (14.0-18.0) g/dl Hct (42-52) % MCV (80-94) fL MCH (27-31) pg MCHC (31-36) g/dl RDW (10.5-15) % Plt Count (150-450) 10^3/ul MPV (7.4-10.4) um3 Neut % (Auto) (38-83) % Lymph % (Auto) (25-47) % Harper % (Auto) (1-9) % Eos % (Auto) (0-6) % Baso % (Auto) (0-2) % Absolute Neuts (auto) (1.5-7.7) 10^3/ul Absolute Lymphs (auto) (1.0-4.8) 10^3/ul Absolute Monos (auto) (0-0.8) 10^3/ul Absolute Eos (auto) (0-0.6) 10^3/ul Absolute Basos (auto) (0-0.2) 10^3/ul Absolute Nucleated RBC 10^3/ul Nucleated RBC % INR (Anticoag Therapy) (0.77-1.02) Sodium (133-145) mmol/L Potassium (3.5-5.0) mmol/L Chloride (101-111) mmol/L Carbon Dioxide (22-32) mmol/L Anion Gap (2-11) mmol/L BUN (6-24) mg/dL Creatinine (0.67-1.17) mg/dL Est GFR ( Amer) (>60) Est GFR (Non-Af Amer) (>60) BUN/Creatinine Ratio (8-20) Glucose (70-100) mg/dL Lactic Acid 1.3 1.5 (0.5-2.0) mmol/L Calcium (8.6-10.3) mg/dL Total Bilirubin (0.2-1.0) mg/dL AST (13-39) U/L ALT (7-52) U/L Alkaline Phosphatase (34-104) U/L Troponin I (<0.04) ng/mL Total Protein (6.4-8.9) g/dL Albumin (3.2-5.2) g/dL Globulin (2-4) g/dL Albumin/Globulin Ratio (1-3) Urine Color Yellow Urine Appearance Clear Urine pH 6.0 (5-9) Ur Specific [place] 1.017 (1.010-1.030) Urine Protein Negative (Negative) Urine Ketones Negative (Negative) Urine Blood Negative (Negative) Urine Nitrate Negative (Negative) Urine Bilirubin Negative (Negative) Urine Urobilinogen Positive H (Negative) Ur Leukocyte Esterase Negative (Negative) Urine Glucose Negative (Negative) Result Diagrams: 08/03/17 14:30 08/03/17 14:30 Lab Statement: Any lab studies that have been ordered have been reviewed, and results considered in the medical decision making process. - CT Chest CT Interpretation Completed By: Radiologist - 1. Mildly limited CT pulmonary angiogram with accurate assessment only to the segmental level without evidence for pulmonary embolism. Suboptimal IV small caliber line limits exam. 2. Overall there is interval worsening of thoracic lymphadenopathy. ED Physician has reviewed this report. Disposition - Course Course Of Treatment: Mr. Juarez went home this AM and took a nap. When he awoke he was again febile, shivering uncontrollably and weak. He presented febrile, tachycardic and tachyneic. He was given antipyretics and IV NS and improved a lot. I agree that this is likely a viral issue and possibly influenza although his swab was negative this AM. I will treat him anyway and get him close F/U. - Diagnoses Provider Diagnoses: Viral syndrome - Physician Notifications Discussed Care Of Patient With: Tiffanie Cisneros Time Discussed With Above Provider: 17:02 Instructed by Provider To: Other - pt should have CTA of Chest/thorax Discharge - Discharge Plan Condition: Stable Disposition: HOME Prescriptions: Oseltamivir CAP* [Tamiflu CAP*] 75 mg PO BID #9 cap Patient Education Materials: Viral Syndrome (ED) Referrals: Madi Melton MD [Primary Care Provider] - 2 Days Additional Instructions: A prescription for Tamiflu is provided. RETURN TO THE EMERGENCY DEPARTMENT FOR CHANGING OR WORSENING SYMPTOMS. The documentation as recorded by the Quin eaton Julia accurately reflects the service I personally performed and the decisions made by , Kurt Ribeiro MD.
== END 2017-08-03 20:17 | disposition home or self-care (01) ==
LOC: ED 14:09
DX: B34.9 Viral infection, unspecified (principal)
CPT/HCPCS: 36415; 71275; 80053; 81003; 83605; 84484; 85025; 85610; 87040; 96360; 96361; 99284; A9270-GY; Q9967

== ENCOUNTER 2017-08-04 11:37 | Observation (INO) | payer OTHER ==
[2017-08-04] MEDS ORDERED: NS 0.9% 1000 ML* 1,000 ML IV ONE (13:17)
[2017-08-04 13:43] LABS: ABS Basophils 0 10^3/ul (0-0.2); ABS Eosinophils 0 10^3/ul (0-0.6); ABS Lymphocytes 0.8 10^3/ul (1.0-4.8); ABS Monocytes 0.6 10^3/ul (0-0.8); ABS Neutrophils 4.3 10^3/ul (1.5-7.7); ABS Nucleated RBC 0 10^3/ul; Eosinophil % 0 % (0-6); Hematocrit 33 % (42-52); Hemoglobin 11.1 g/dl (14.0-18.0); Lymphocyte % 13.7 % (25-47); Mean Corpuscular HGB Conc 34 g/dl (31-36); Mean Corpuscular Hemoglobin 31 pg (27-31); Mean Corpuscular Volume 90 fL (80-94); Mean Platelet Volume 6 um3 (7.4-10.4); Nucleated Red Blood Cells % 0; Platelet Count 234 10^3/ul (150-450); Red Blood Count 3.59 10^6/ul (4.0-5.4); Red Cell Distribution Width 17 % (10.5-15); White Blood Count 5.7 10^3/ul (3.5-10.8)
[2017-08-04 14:17] LABS: INR 1.13 (0.77-1.02)
[2017-08-04 14:23] LABS: EGFR Non-African American 97.9 (>60)
[2017-08-04] MEDS ORDERED: Ibuprofen TAB* 400 MG PO PRN (14:31)
[2017-08-04] MEDS ORDERED: Prochlorperazine TAB* 10 MG PO PRN (14:36)
--- NOTE | 2017-08-04 15:19 | RAD ---
HISTORY: Right shoulder pain COMPARISONS: None VIEWS: 4, Frontal internal rotation, external rotation, outlet, and axillary views of the right shoulder FINDINGS: BONE DENSITY: Normal. BONES: There is no displaced fracture. JOINTS: There is no arthropathy. ALIGNMENT: There is no dislocation. SOFT TISSUES: Unremarkable. OTHER FINDINGS: The right-sided chest port is noted. IMPRESSION: NO ACUTE OSSEOUS INJURY. IF SYMPTOMS PERSIST, RECOMMEND REPEAT IMAGING.
[2017-08-04] MEDS: Enoxaparin(*) 40 MG/0.4 ML SYR SUBCUT SCH (17:47)
[2017-08-04] MEDS: NS 0.9% w/ 20 Meq KCL 1000 ML* 1,000 ML IV SCH (17:53)
[2017-08-04] MEDS: Acetaminophen TAB* 325 MG PO PRN ×2 (19:00→23:45)
[2017-08-04] MEDS: levETIRAcetam TAB* 500 MG PO SCH (20:43)
[2017-08-04] MEDS: Oseltamivir CAP* 75 MG CAP PO SCH (20:43)
[2017-08-04 22:03] LABS: Urine Appearance Turbid; Urine Blood Negative (Negative); Urine Color Yellow; Urine Ketones Negative (Negative); Urine Protein 2+(100 mg/dL) (Negative); Urine Specific Gravity 1.026 (1.010-1.030); Urine Urobilinogen Negative (Negative)
[2017-08-05 06:26] LABS: ABS Basophils 0 10^3/ul (0-0.2); ABS Eosinophils 0 10^3/ul (0-0.6); ABS Lymphocytes 1.2 10^3/ul (1.0-4.8); ABS Neutrophils 4.3 10^3/ul (1.5-7.7); ABS Nucleated RBC 0 10^3/ul; Eosinophil % 0.1 % (0-6); Hematocrit 32 % (42-52); Hemoglobin 11.1 g/dl (14.0-18.0); Lymphocyte % 18.7 % (25-47); Mean Corpuscular HGB Conc 35 g/dl (31-36); Mean Corpuscular Hemoglobin 31 pg (27-31); Mean Corpuscular Volume 90 fL (80-94); Mean Platelet Volume 6 um3 (7.4-10.4); Nucleated Red Blood Cells % 0.1; Platelet Count 242 10^3/ul (150-450); Red Blood Count 3.57 10^6/ul (4.0-5.4); Red Cell Distribution Width 17 % (10.5-15); White Blood Count 6.5 10^3/ul (3.5-10.8)
[2017-08-05 06:42] LABS: EGFR Non-African American 96.5 (>60)
[2017-08-05] MEDS: NS 0.9% w/ 20 Meq KCL 1000 ML* 1,000 ML IV SCH ×2 (07:36→22:55)
[2017-08-05] MEDS: Oseltamivir CAP* 75 MG CAP PO SCH ×2 (07:53→20:59)
[2017-08-05] MEDS: amLODIPine TAB* 5 MG PO SCH (07:53)
[2017-08-05] MEDS: Metoprolol Succinate XL TAB* 50 MG PO SCH (07:53)
[2017-08-05] MEDS: Omeprazole CAP* 20 MG PO SCH (07:54)
[2017-08-05] MEDS: levETIRAcetam TAB* 500 MG PO SCH ×2 (07:54→20:59)
[2017-08-05] MEDS ORDERED: Potassium Chlor TAB* 20 MEQ TAB.ER PO SCH (09:00)
[2017-08-05] MEDS: Potassium Chlor TAB* 20 MEQ TAB.ER PO SCH ×2 (12:34→20:59)
[2017-08-05] MEDS: Enoxaparin(*) 40 MG/0.4 ML SYR SUBCUT SCH (14:39)
[2017-08-05] MEDS ORDERED: Gadoteridol* (CONTRAST) 279.3 MG/ML 10 ML IV ONE (19:48)
--- NOTE | 2017-08-05 20:45 | RAD ---
INDICATION: Worsening aphasia and patient with known brain metastases. Relevant surgical history includes craniotomy December 19, 2016. COMPARISON: Similar MRI of the brain June 2017. TECHNIQUE: Sagittal T1, axial T1, T2, susceptibility, FLAIR and diffusion-weighted images were obtained. In addition, axial, sagittal and coronal T1-weighted images were obtained following intravenous injection of 20 mL of ProHance contrast. FINDINGS: Less otherwise specified comparisons below reference the most recent June 30, 2017 MRI of the brain. The ventricles, cisterns and sulci appear to be within normal limits. Involving the left frontal lobe there is a heterogeneously intense T2 bright and T1 mostly dark mass measuring 1.8 cm. Comparison of the pre and postcontrast MRI images does not reveal any significant enhancement but there is T2 bright vasogenic edema involving the white matter tracts adjacent to this mass. There is increased T2 signal at the left temporal lobe that is not appear to correspond to any active enhancement on the postcontrast images. Overall the appearance is similar to the most recent MRI of the brain. No areas of restricted diffusion are present. There is no evidence for infarct or hemorrhage. The visualized portion of the paranasal sinuses appear clear. Again noted is a small amount of dependent mastoid air cell effusion. IMPRESSION: 1. Similar to the most recent MRI of the brain there are postsurgical and treatment effect related changes involving the left frontal and temporal lobes. There is no significant enhancement to indicate disease recurrence. Overall the appearance is not significantly changed since June 30, 2017. 2. Small amount of dependent mastoid air cell effusion.
[2017-08-06 06:23] LABS: EGFR Non-African American 110.2 (>60)
--- NOTE | 2017-08-06 08:37 | ED ---
Ravi Ceja Angela, scribed for Aaron Henson MD on 08/04/17 at 1311 . Shortness of Breath - HPI Summary HPI Summary: This pt is a 52 y/o male, stage 4 melanoma metastasized to the brain currently on oral chemo, presenting to [facility] c/o SOB and fever since yesterday. reports the pt was in the ED twice yesterday (08/03/17) for a maximum temperature of 103 and 104. Additionally pt had difficulty breathing and cough. Pt had chest XR and was given 2 doses of IV antibiotics. The second time, pt came back at 20:30 last night and was discharged. On the way home pulled over twice so the pt can vomit twice. Last night pt's temperature was 104.5 F and gave the pt Tylenol. At 01:00 today pt woke up drenched in diaphoresis and had a temperature of 101F. Pt was given more Tylenol. At 05:30 today, pt had a temperature of 100.8 F and gave him more Tylenol. describes the pt was gasping, wheezing and had chills this morning. Pt also had diarrhea this morning. called Dr. Melton's office this morning and was told to come to the ED. Pt has had 2 pieces of toast this morning and has been drinking water. The last dose of oral chemo pt had was at 08:00 AM yesterday. Pt did not take his oral chemo at 08:00 PM last night or 08:00 this morning. - History of Current Complaint Chief Complaint: EDShortnessOfBreath Time Seen by Provider: 08/04/17 13:02 Hx Obtained From: Patient, Family/Leather Colorer - Onset/Duration: Lasting Days, Still Present Timing: Constant Current Severity: Moderate Dyspnea At: Rest Aggrevating Factors: Nothing Alleviating Factors: Nothing Associated Signs & Symptoms: Cough (Nonproductive), Wheezing, Fever, Chills, Diaphoresis - Allergy/Home Medications Allergies/Adverse Reactions: Allergies Allergy/AdvReac Type Severity Reaction Status Date / Time No Known Allergies Allergy Verified 06/20/17 12:14 PMH/Surg Hx/FS Hx/Imm Hx Endocrine/Hematology History: Denies: Hx Diabetes Cardiovascular History: Reports: Hx Hypertension Denies: Hx Pacemaker/ICD, Other Cardiovascular Problems/Disorders Respiratory History: Denies: Hx Asthma, Other Respiratory Problems/Disorders GI History: Denies: Other GI Disorders History: Denies: Hx Renal Disease Musculoskeletal History: Denies: Other Musculoskeletal History Sensory History: Denies: Hx Contacts or Glasses, Hx Hearing Aid Opthamlomology History: Denies: Hx Contacts or Glasses Neurological History: Denies: Other Neuro Impairments/Disorders Psychiatric History: Denies: Hx Panic Disorder - Cancer History Cancer Type, Location and Year: MALIGNANT MELANOMA Hx Chemotherapy: Yes - PRESENTLY - BUT ON HOLD RIGHT NOW Hx Radiation Therapy: Yes - FINISHED 02/06 - Surgical History Surgery Procedure, Year, and Place: CRANIOTOMY 12/19/2016 [place]. TONSILS AGE 3. PORT 01/2017-[facility] Hx Anesthesia Reactions: No - Immunization History Date of Tetanus Vaccine: u nk Date of Influenza Vaccine: unk Infectious Disease History: No Infectious Disease History: Denies: Traveled Outside the [place] in Last 30 Days - Family History Known Family History: Negative: Cardiac Disease, Hypertension, Diabetes - Social History Alcohol Use: Rare Alcohol Amount: 1 per year Hx Substance Use: No Substance Use Type: Reports: None Hx Tobacco Use: No Smoking Status (MU): Never Smoked Tobacco Amount Used/How Often: pack a day for 30 years Review of Systems Positive: Fever, Chills, Skin Diaphoresis Eyes: Negative ENT: Negative Positive: Shortness Of Breath, Cough Positive: Vomiting, Diarrhea Skin: Negative Neurological: Negative All Other Systems Reviewed And Are Negative: Yes Physical Exam - Summary Physical Exam Summary: VITAL SIGNS: Reviewed. GENERAL: Patient is a well-developed and nourished male who is lying comfortable in the stretcher. Patient is not in any acute respiratory distress. HEAD AND FACE: No signs of trauma. No ecchymosis, hematomas or skull depressions. No sinus tenderness. EYES: PERRLA, EOMI x 2, No injected conjunctiva, no nystagmus. EARS: Hearing grossly intact. Ear canals and tympanic membranes are within normal limits. MOUTH: Oropharynx within normal limits. NECK: Supple, trachea is midline, no adenopathy, no JVD, no carotid bruit, no c- spine tenderness, neck with full ROM. CHEST: Symmetric, no tenderness at palpation LUNGS: Clear to auscultation bilaterally. No wheezing or crackles. CVS: Regular rate and rhythm, S1 and S2 present, no murmurs or gallops appreciated. ABDOMEN: Soft, non-tender. No signs of distention. No rebound no guarding, and no masses palpated. Bowel sounds are normal. EXTREMITIES: FROM in all major joints, no edema, no cyanosis or clubbing. NEURO: Alert and oriented x 3. No acute neurological deficits. Speech is normal and follows commands. SKIN: Dry and warm Triage Information Reviewed: Yes Vital Signs On Initial Exam: Initial Vitals Temp Pulse Resp BP Pulse Ox 98 F 106 20 138/92 99 08/04/17 11:42 08/04/17 11:42 08/04/17 11:42 08/04/17 11:42 08/04/17 11:42 Vital Signs Reviewed: Yes Diagnostics - Vital Signs Vital Signs Temp Pulse Resp BP Pulse Ox 08/04/17 12:36 99.3 F 92 14 129/90 99 08/04/17 11:42 98 F 106 20 138/92 99 - Laboratory Result Diagrams: 08/04/17 13:30 08/04/17 13:30 Lab Statement: Any lab studies that have been ordered have been reviewed, and results considered in the medical decision making process. Course/Dx - Course Assessment/Plan: This pt is a 52 y/o male, stage 4 melanoma metastasized to the brain currently on oral chemo, presenting to [facility] c/o SOB and fever since yesterday. reports the pt was in the ED twice yesterday (08/03/17) for a maximum temperature of 103 and 104. Additionally pt had difficulty breathing and cough. Pt had chest XR and was given 2 doses of IV antibiotics. The second time, pt came back at 20:30 last night and was discharged. On the way home pulled over twice so the pt can vomit twice. Last night pt's temperature was 104.5 F and gave the pt Tylenol. At 01:00 today pt woke up drenched in diaphoresis and had a temperature of 101F. Pt was given more Tylenol. At 05:30 today, pt had a temperature of 100.8 F and gave him more Tylenol. describes the pt was gasping, wheezing and had chills this morning. Pt also had diarrhea this morning. Test results shows chronic mild anemia, has positive lymphocytes and monocytes, ESR is 118, fibrinogen is 722, CRP is 110 which has increased from previous visits. At this point I discussed with Ghada Wright NP who came and assessed the pt. She agrees to admit the pt to Dr. Melton s services. Pt is hemodynamically stable, alert and oriented x3. - Diagnoses Provider Diagnoses: Fever, Melanoma of skin - Physician Notifications Discussed Care of Patient With: Ghada Wright Time Discussed With Above Provider: 14:12 Instructed by Provider To: Other - I discussed pt care with Ghada Wright NP from Dr. Melton's services, who has agreed to admit the pt. Discharge - Discharge Plan Condition: Stable Disposition: ADMITTED TO [facility] documentation as recorded by the Ravi eaton Angela accurately reflects the service I personally performed and the decisions made by me, Aaron Henson MD.
[2017-08-06 08:50] VITALS: BP 122/90
[2017-08-06] MEDS: Potassium Chlor TAB* 20 MEQ TAB.ER PO SCH (08:51)
[2017-08-06] MEDS: levETIRAcetam TAB* 500 MG PO SCH (08:51)
[2017-08-06] MEDS: amLODIPine TAB* 5 MG PO SCH (08:51)
[2017-08-06] MEDS: Omeprazole CAP* 20 MG PO SCH (08:51)
[2017-08-06] MEDS: Metoprolol Succinate XL TAB* 50 MG PO SCH (08:51)
[2017-08-06] MEDS: Oseltamivir CAP* 75 MG CAP PO SCH (08:51)
== END 2017-08-06 13:00 | disposition home or self-care (01) ==
LOC: ED 11:37 → MED 14:31
PROVIDERS: ADMIT Internal Medicine Hematology & Oncology; ATTEND Internal Medicine Hematology & Oncology
DX: R50.9 Fever, unspecified (principal); Z85.820 Personal history of malignant melanoma of skin; R05 Cough; R06.2 Wheezing; Z87.891 Personal history of nicotine dependence; Z86.79 Personal history of other diseases of the circulatory system; Z92.21 Personal history of antineoplastic chemotherapy; R06.02 Shortness of breath
CPT/HCPCS: 36415; 70553; 80048; 80053; 81003; 81015; 83605; 83880; 84484; 85025; 85384; 85610; 85652; 85730; 86140; 87040; 99219; 99284; A9270-GY; A9579; G0378; J1642; J1650

== ENCOUNTER 2018-03-07 13:50 | Emergency (ER) | payer BC ==
--- NOTE | 2018-03-07 14:41 | ED ---
Complex/Multi-Sys Presentation - HPI Summary HPI Summary: 53 year old M presenting [facility] accompanied by complains of fever since 04:00 today, worse since 13:30 today. Symptoms aggravated by nothing. Symptoms alleviated by nothing. Patient has treated the fever with Tylenol MORTAR MAN with relief. additionally notes wheezing, diaphoresis, and paleness. reports that patient has been increasingly confused and repeating himself. Early this morning, patient's O2 stats dropped to 89%. called Dr. Melton, patient's oncologist, who recommended increasing patient's steroids. also put patient on oxygen tank, which he normally does not use. reports that patient's heart rate also increased early this morning. Patient has metastatic cancer, for which patient takes oral chemo twice a day. - History Of Current Complaint Chief Complaint: EDGeneral Time Seen by Provider: 03/07/18 14:25 Hx Obtained From: Patient, Family/Gearcase Assembler - Onset/Duration: Lasting Hours - 04:00 today, Still Present, Worse Since - 13:30 today Timing: Constant Aggravating Factor(s): Nothing Alleviating Factor(s): Nothing Associated Signs And Symptoms: Positive: Other - wheezing, diaphoresis, and paleness. reports that patient has been increasingly confused and repeating himself. - Allergies/Home Medications Allergies/Adverse Reactions: Allergies Allergy/AdvReac Type Severity Reaction Status Date / Time No Known Allergies Allergy Verified 01/13/18 13:52 PMH/Surg Hx/FS Hx/Imm Hx Previously Healthy: No Endocrine/Hematology History: Denies: Hx Diabetes Cardiovascular History: Reports: Hx Hypertension Denies: Hx Pacemaker/ICD, Other Cardiovascular Problems/Disorders Respiratory History: Denies: Hx Asthma, Other Respiratory Problems/Disorders GI History: Denies: Other GI Disorders History: Denies: Hx Renal Disease Musculoskeletal History: Denies: Other Musculoskeletal History Sensory History: Denies: Hx Contacts or Glasses, Hx Hearing Aid Opthamlomology History: Denies: Hx Contacts or Glasses Neurological History: Denies: Other Neuro Impairments/Disorders Psychiatric History: Denies: Hx Panic Disorder - Cancer History Cancer Type, Location and Year: MALIGNANT MELANOMA, mets to brain Hx Chemotherapy: Yes - PRESENTLY Hx Radiation Therapy: Yes - FINISHED 02/06 - Surgical History Surgery Procedure, Year, and Place: CRANIOTOMY 12/19/2016 [place]. TONSILS AGE 3. PORT 01/2017-[facility] Hx Anesthesia Reactions: No - Immunization History Date of Tetanus Vaccine: u nk Date of Influenza Vaccine: unk Infectious Disease History: No Infectious Disease History: Denies: Traveled Outside the [place] in Last 30 Days - Family History Known Family History: Negative: Cardiac Disease, Hypertension, Diabetes - Social History Alcohol Use: Rare Alcohol Amount: 1 per year Hx Substance Use: No Substance Use Type: Reports: None Hx Tobacco Use: No Smoking Status (MU): Never Smoked Tobacco Amount Used/How Often: pack a day for 30 years Review of Systems Positive: Fever, Skin Diaphoresis, Other - paleness Positive: Other - wheezing All Other Systems Reviewed And Are Negative: Yes Physical Exam - Summary Physical Exam Summary: Appearance: The patient is well-nourished in no acute distress and in no acute pain. Skin: The skin is warm and dry and skin color reflects adequate perfusion. HEENT: The head is normocephalic and atraumatic. The pupils are equal and reactive. The conjunctivae are clear and without drainage. Nares are patent and without drainage. Mouth reveals moist mucous membranes and the throat is without erythema and exudate. The external ears are intact. The ear canals are patent and without drainage. The tympanic membranes are intact. Neck: The neck is supple with full range of motion and non-tender. There are no carotid bruits. There is no neck vein distension. Respiratory: Chest is non-tender. Lungs are clear to auscultation and breath sounds are symmetrical and equal. Cardiovascular: Heart is regular rate and rhythm. There is no murmur or rub auscultated. There is no peripheral edema and pulses are symmetrical and equal. Abdomen: The abdomen is soft and non-tender. There are normal bowel sounds heard in all four quadrants and there is no organomegaly palpated. Musculoskeletal: There is no back tenderness noted. Extremities are non-tender with full range of motion. There is good capillary refill. There is no peripheral edema or calf tenderness elicited. Neurological: Patient is alert and oriented to person, place and time. The patient has symmetrical motor strength in all four extremities. Cranial nerves are grossly intact. Deep tendon reflexes are symmetrical and equal in all four extremities. Psychiatric: The patient has an appropriate affect and does not exhibit any anxiety or depression. GCS: 15 Triage Information Reviewed: Yes Vital Signs On Initial Exam: Initial Vitals Temp Pulse Resp BP Pulse Ox 97.5 F 66 16 151/102 99 03/07/18 14:03 03/07/18 14:03 03/07/18 14:03 03/07/18 14:03 03/07/18 14:03 Vital Signs Reviewed: Yes Diagnostics - Vital Signs Vital Signs Temp Pulse Resp BP Pulse Ox 03/07/18 14:03 97.5 F 66 16 151/102 99 - Laboratory Result Diagrams: 03/07/18 15:55 03/07/18 15:55 Lab Statement: Any lab studies that have been ordered have been reviewed, and results considered in the medical decision making process. - Radiology CXR Radiology Interpretation Completed By: Radiologist - NO EVIDENCE FOR ACUTE DISEASE. ED physician has reviewed this report. - CT Brain CT Interpretation Completed By: Radiologist - 1. NO EVIDENCE FOR ACUTE INTRACRANIAL ABNORMALITY. 2. FOCAL AREAS OF ENCEPHALOMALACIA IN THE LEFT FRONTAL AND TEMPORAL LOBES, UNCHANGED. ED physician has reviewed this report. - EKG 1520 Cardiac Rate: NL - 67 BPM EKG Rhythm: Sinus Rhythm EKG Interpretation: Horizontal axis Complex Multi-Symp Course/Dx Course Of Treatment: Mr. Juarez improved here in the emergency department with IV fluids and steroids as per Dr. Melton. His laboratory work was in his normal range. I recommended follow-up with Dr. Melton - Diagnoses Provider Diagnoses: Medication reaction Discharge - Sign-Out/Discharge Documenting (check all that apply): Patient Departure - Discharge - Discharge Plan Condition: Stable Disposition: HOME Patient Education Materials: Adverse Drug Reaction (ED) Referrals: Madi Melton MD [Primary Care Provider] - 2 Days Additional Instructions: Follow up with Dr. Melton in 2 days. RETURN TO THE EMERGENCY DEPARTMENT FOR NEW OR WORSENING SYMPTOMS. - Billing Disposition and Condition Condition: STABLE Disposition: Home - Attestation Statements Document Initiated by Scribe: Yes Documenting Scribe: Jessica Glass Provider For Whom Crystal is Documenting (Include Credential): Kurt Ribeiro MD Scribe Attestation: IJessica, scribed for Kurt Ribeiro MD on 03/08/18 at 2121. Scribe Documentation Reviewed: Yes Provider Attestation: The documentation as recorded by the noelibJessica quiñones accurately reflects the service I personally performed and the decisions made by me, Kurt Ribeiro MD
[2018-03-07 15:17] LABS: Urine Appearance Clear; Urine Blood Negative (Negative); Urine Color Yellow; Urine Ketones Negative (Negative); Urine Protein Negative (Negative); Urine Specific Gravity 1.024 (1.010-1.030); Urine Urobilinogen Negative (Negative)
--- NOTE | 2018-03-07 15:39 | RAD ---
INDICATION: Weakness. COMPARISON: Comparison is made with prior chest x-ray study from August 03, 2017. TECHNIQUE: A portable view of the chest was obtained. FINDINGS: There is a power port central venous catheter entering on the right side. The catheter tip projects over the right atrium. The heart is within normal limits in size. The lungs are underinflated and grossly clear. No pleural effusion is seen. IMPRESSION: NO EVIDENCE FOR ACUTE DISEASE.
[2018-03-07 16:13] LABS: ABS Basophils 0 10^3/ul (0-0.2); ABS Eosinophils 0 10^3/ul (0-0.6); ABS Lymphocytes 0.9 10^3/ul (1.0-4.8); ABS Monocytes 0.4 10^3/ul (0-0.8); ABS Neutrophils 5.1 10^3/ul (1.5-7.7); ABS Nucleated RBC 0 10^3/ul; Eosinophil % 0.1 % (0-6); Hematocrit 40 % (42-52); Hemoglobin 13.9 g/dl (14.0-18.0); Lymphocyte % 14.2 % (25-47); Mean Corpuscular HGB Conc 35 g/dl (31-36); Mean Corpuscular Hemoglobin 36 pg (27-31); Mean Corpuscular Volume 101 fL (80-94); Nucleated Red Blood Cells % 0.1; Platelet Count 180 10^3/ul (150-450); Red Blood Count 3.93 10^6/ul (4.00-5.40); Red Cell Distribution Width 15 % (10.5-15); White Blood Count 6.5 10^3/ul (3.5-10.8)
[2018-03-07 16:22] LABS: EGFR Non-African American 66.7 (>60)
--- NOTE | 2018-03-07 16:49 | RAD ---
INDICATION: Confusion, history of metastatic disease. COMPARISON: Comparison is made with a prior CT of the brain from August 03, 2007 and an MRI of the brain from February 02, 2018. TECHNIQUE: Contiguous axial sections of the brain were obtained from the skull base to the vertex without contrast. FINDINGS: There are focal moderate size areas of encephalomalacia present in the left frontal and temporal lobes which appear unchanged. There is mild prominence of the left lateral ventricle secondary to negative mass effect. The ventricles and cisterns are otherwise unremarkable. There is no evidence for mass effect or hemorrhage. The patient is status post left frontal craniotomy. The visualized portion of the paranasal sinuses and mastoid air cells appear clear. IMPRESSION: 1. NO EVIDENCE FOR ACUTE INTRACRANIAL ABNORMALITY. 2. FOCAL AREAS OF ENCEPHALOMALACIA IN THE LEFT FRONTAL AND TEMPORAL LOBES, UNCHANGED.
[2018-03-07] MEDS ORDERED: methylPREDNISolone SOD 40 MG* 1 ML VIAL IV ONE (17:56)
[2018-03-07] MEDS: NS 0.9% 1000 ML* 2,000 ML IV ONE (18:16)
[2018-03-07 20:13] VITALS: BP 154/98
== END 2018-03-07 20:12 | disposition home or self-care (01) ==
LOC: ED 13:50
CPT/HCPCS: 36415; 70450; 71045; 80053; 81003; 83605; 83735; 84443; 84484; 85025; 86140; 93005; J1642; J2920

== ENCOUNTER → 2018-08-13 06:28 | Emergency (ER) | payer BC ==
[~2018-08-13 06:28] MED LIST changes: -Buffered Lidocaine 0.9% SYRIN* 5 ML/SYR SYRINGE INTRADERM ONE; -Dexamethasone IV* 4 MG/ML 1 ML (4 MG) IV SLOW PU ONE; -Famotidine IV* 10 MG/ML 2 ML (20 mg) IV ONE; +NS 0.9% 1000 ML** 1,000 ML IV.FLUID IV ONE; -ceFAZolin 2 GM PREMIX (*) 100 ML IVPB ONE
--- NOTE | 2018-08-13 07:10 | ED ---
HPI Febrile Illness - HPI Summary HPI Summary: A 53 y/o M referred by Dr. Davidson, oncology, presents to ED with c/o max fever ( 104.5 F) onset 0430. 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 He has had intermittent fevers and LUTZ since 08/08/18. On 08/10/18, he saw Ghada Wright, MACHINE ROOM ENGINEER, and his CT found a PE. He was put on Lovenox subQ. Additionally, patient has "inset" metastatic melanoma to the brain. His last PO chemo treatment was yesterday. He receives Braftovi and Mektovi. His EKG was irregular yesterday, and oncology recommended that he stop chemo for the week. Associated sx: LUTZ, diaphoresis, mild rhinorrhea. Denies urinary symptoms, cough. Alleviating: laying position. Pt sees Dr. Melton, oncology. He did get his flu shot this year. There is an accessible port on R-chest. Vital signs while in room: HR 110 bpm, BP 132/103. Home Medications Medication Instructions Recorded Confirmed Type Omeprazole CAP (NF) [Prilosec CAP* 20 mg PO DAILY 08/03/17 08/13/18 History 20 MG] Potassium Chlor TAB* [Potassium 20 meq PO DAILY 08/03/17 08/13/18 History Chlor TAB 20 MEQ*] Prochlorperazine TAB* [Compazine 10 mg PO Q6H PRN 08/03/17 08/13/18 History Tab*] amLODIPine TAB* [Norvasc 5 mg TAB*] 10 mg PO DAILY 08/03/17 08/13/18 History levETIRAcetam TAB* [Keppra TAB*] 1,000 mg PO BID 08/03/17 08/13/18 History Metoprolol Succinate XL TAB* 50 mg PO DAILY #30 tab.xl 08/06/17 08/13/18 Rx [Toprol XL TAB*] Binimetinib [Mektovi] 45 mg PO BID 08/09/18 08/13/18 History Encorafenib [Braftovi] 300 mg PO DAILY 08/09/18 08/13/18 History Enoxaparin Sodium [Lovenox] 120 mg SQ DAILY 08/13/18 08/13/18 History Furosemide 20 mg PO DAILY 08/13/18 08/13/18 History Levothyroxine TAB* [Synthroid TAB*] 100 mcg PO DAILY 08/13/18 08/13/18 History - History of Current Complaint Chief Complaint: EDGeneral Time Seen by Provider: 08/13/18 06:55 Hx Obtained From: Patient, Family/Home Stager - Onset/Duration: Started Hours Ago, Atraumatic, Still Present Timing: Constant Temperature: 104.5 F - 0430 Initial Severity: Severe Current Severity: None Pain Intensity: 0 Pain Scale Used: 0-10 Numeric Aggravating Factors: Nothing Alleviating Factors: Other: - laying position helps LUTZ Associated Signs and Symptoms: Diaphoresis, Other: - pos: mild rhinorrhea, LUTZ. neg: urinary sx, cough - Additional Pertinent History Primary Care Physician: EVER - Allergy/Home Medications Allergies/Adverse Reactions: Allergies Allergy/AdvReac Type Severity Reaction Status Date / Time No Known Allergies Allergy Verified 08/13/18 06:45 Home Medications: Home Medications Enoxaparin Sodium [Lovenox] 120 mg SQ DAILY 08/13/18 [History Confirmed 08/13/18 ] Furosemide 20 mg PO DAILY 08/13/18 [History Confirmed 08/13/18] Levothyroxine TAB* [Synthroid TAB*] 100 mcg PO DAILY 08/13/18 [History Confirmed 08/13/18] PMH/Surg Hx/FS Hx/Imm Hx Previously Healthy: No Endocrine/Hematology History: Reports: Hx Anticoagulant Therapy - Lovenox 07/2018 Denies: Hx Diabetes Cardiovascular History: Reports: Hx Hypertension - ON MEDICATON Denies: Hx Pacemaker/ICD, Other Cardiovascular Problems/Disorders Respiratory History: Reports: Hx Pulmonary Embolism - 07/2018 Denies: Hx Asthma, Other Respiratory Problems/Disorders GI History: Denies: Other GI Disorders History: Denies: Hx Renal Disease Musculoskeletal History: Denies: Other Musculoskeletal History Sensory History: Denies: Hx Contacts or Glasses, Hx Hearing Aid Opthamlomology History: Denies: Hx Contacts or Glasses Neurological History: Denies: Other Neuro Impairments/Disorders Psychiatric History: Denies: Hx Panic Disorder - Cancer History Cancer Type, Location and Year: MALIGNANT MELANOMA, mets to brain Hx Chemotherapy: Yes - PRESENTLY Hx Radiation Therapy: Yes - FINISHED 02/06 - Surgical History Surgery Procedure, Year, and Place: CRANIOTOMY 12/19/2016 [place]. TONSILS AGE 3. [place] [place] Hx Anesthesia Reactions: No - Immunization History Date of Influenza Vaccine: fall 2017 Infectious Disease History: No Infectious Disease History: Denies: Traveled Outside the [place] in Last 30 Days - Family History Known Family History: Negative: Cardiac Disease, Hypertension, Diabetes - Social History Occupation: Unemployed Lives: With Family Alcohol Use: Rare Alcohol Amount: 1 per year Hx Substance Use: No Substance Use Type: Reports: None Hx Tobacco Use: No Smoking Status (MU): Former Smoker Amount Used/How Often: pack a day for 30 years Review of Systems Positive: Fever, Skin Diaphoresis Positive: Nasal Discharge - mild Cardiovascular: Negative Positive: Other - pos: LUTZ. Negative: Cough Gastrointestinal: Negative Negative: dysuria, hematuria, urgency Musculoskeletal: Negative Skin: Negative Neurological: Negative Psychological: Normal All Other Systems Reviewed And Are Negative: Yes Physical Exam - Summary Physical Exam Summary: Appearance: Well-appearing, moderate pain distress, well-nourished, afebrile Skin: Warm, color reflects adequate perfusion, clammy Head: Normal Head/Face inspection, atraumatic Eyes: Conjunctiva clear ENT: Normal inspection Neck: Supple, no nodes, no JVD Respiratory: Decreased breath sounds Cardio: RRR, No murmur, pulses normal, brisk capillary refill Abdomen: Soft, nontender Bowel sounds: Present Musculoskeletal: Strength Intact/ROM intact, no calf tenderness, no edema. Port in R upper chest. Psychological: Normal Neuro: Alert, muscle tone normal, no focal deficit Triage Information Reviewed: Yes Vital Signs On Initial Exam: Initial Vitals Temp Pulse Resp BP Pulse Ox 98.1 F 118 16 141/107 95 08/13/18 06:30 08/13/18 06:30 08/13/18 06:30 08/13/18 06:30 08/13/18 06:30 Vital Signs Reviewed: Yes Diagnostics - Vital Signs Vital Signs Temp Pulse Resp BP Pulse Ox 08/13/18 06:30 98.1 F 118 16 141/107 95 - Laboratory Result Diagrams: 08/13/18 07:42 08/13/18 07:41 Lab Statement: Any lab studies that have been ordered have been reviewed, and results considered in the medical decision making process. - Radiology CXR Radiology Interpretation Completed By: Radiologist Summary of Radiographic Findings: IMPRESSION: No active cardiopulmonary dz. ED provider has reviewed this report. Re-Evaluation - Re-Evaluation 1 Re-Evaluation Time: 09:23 Change: Improved Comment: Patient is feeling fine. Requesting that he provide urine. Discussing consult with Dr. Melton, oncology,. 2 Re-Evaluation Time: 11:26 Change: Unchanged Comment: Patient appears well. He and his voiced understanding of their discussion with OLIVE Greenwood, and the plan to f/u in office next week. Course/Dx - Course Course Of Treatment: Pt is a 53 y/o M presenting to ED with max fever (104.5 F) onset 0430 this date. 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 He has had intermittent fevers and LUTZ since 08/08/18. On 08/10/18, he saw Ghada Wright NP, and his CT found a PE. He was put on Lovenox subQ. Additionally, patient has metastasized melanoma to the brain. His last PO chemo treatment was yesterday. He takes Braftovi and Mektovi. His EKG was irregular yesterday, and oncology recommended that he stop chemo for the week. Associated sx: LUTZ, diaphoresis, mild rhinorrhea. Denies urinary symptoms, cough. Alleviating: laying position. Pt sees Dr. Melton, oncology. He did get his flu shot this year. There is an accessible port on R- chest. Allergies noted, high blood pressure noted. Pt medications reviewed this visit. Rapid flu A and B are negative. CXR is unremarkable. UA results show 2+ protein, trace ketones, positive urobilinogen, 1+ RBC, and specific gravity: 1.045, quamous epithelial cells present, ascorbic acid present. Consulted with Dr. Melton, oncology, who will see patient in ED. I spoke with OLIVE Greenwood, who states patient is OK for discharge to f/u in-office next week as scheduled. The fevers are most likely drug related, and today is his first day without medication. Will discharge home. - Febrile Illness Differential Diagnoses: Bacteremia, Cellulitis, Fever of Unknown Origin, Medication Reaction, Pneumonia, Sepsis, Other: - UTI - Diagnoses Provider Diagnoses: Fever, Metastatic melanoma - Provider Notifications Discussed Care Of Patient With: Madi Melton - oncology Time Discussed With Above Provider: 09:21 Instructed by Provider To: MD Will See In ED - Consulted again at 1044 to update with UA and flu results. Dr. Melton will see pt in ED. Discharge - Sign-Out/Discharge Documenting (check all that apply): Patient Departure - D/C Patient Received Moderate/Deep Sedation with Procedure: No - Discharge Plan Condition: Stable Disposition: HOME Patient Education Materials: Fever in Adults (ED) Referrals: Madi Melton MD [Primary Care Provider] - 5 Days Additional Instructions: We did not find a source for you fever. Dr. Melton wants you to stop your chemo as directed. Return to the ER if any new or worsening symptoms. - Billing Disposition and Condition Condition: STABLE Disposition: Home - Attestation Statements Document Initiated by Scribe: Yes Documenting Scribe: Joel Quiñonez Provider For Whom Scribe is Documenting (Include Credential): Dr. Socorro Espinoza MD Scribe Attestation: Joel Ceja, scribed for Dr. Socorro Espinoza MD on 08/17/18 at 2322. Scribe Documentation Reviewed: Yes Provider Attestation: The documentation as recorded by the Joel eaton accurately reflects the service I personally performed and the decisions made by me, Dr. Socorro Espinoza MD Status of Scribe Document: Viewed Consult Consult: 11:25: Consult with OLIVE Greenwood per Dr. Melton, oncology Approves D/C for patient. Fevers are most likely drug related. Today will be his first day without medication. He is scheduled to see Dr. Melton next week.
[2018-08-13 07:55] LABS: Hematocrit 38 % (42-52); Mean Corpuscular HGB Conc 34 g/dl (31-36); Mean Corpuscular Hemoglobin 33 pg (27-31); Mean Corpuscular Volume 97 fL (80-94); Mean Platelet Volume 6.8 fL (7.4-10.4); Platelet Count 228 10^3/ul (150-450); Red Blood Count 3.95 10^6/ul (4.00-5.40); Red Cell Distribution Width 12 % (10.5-15); White Blood Count 6.8 10^3/ul (3.5-10.8)
[2018-08-13 08:11] LABS: Activated Partial Thrombo Time 64.2 seconds (26.0-36.3); INR 1.1 (0.77-1.02)
[2018-08-13 08:13] LABS: Albumin 3.7 g/dL (3.2-5.2); Albumin/Globulin Ratio 1.2 (1-3); BUN/Creatinine Ratio 7.8 (8-20); C Reactive Protein 97.32 mg/L (<8.01); Calcium 9.1 mg/dL (8.6-10.3); EGFR African American 90.7 (>60); Globulin 3.1 g/dL (2-4); Potassium 3.4 mmol/L (3.5-5.0); Total Bilirubin 0.7 mg/dL (0.2-1.0); Total Protein 6.8 g/dL (6.4-8.9)
[2018-08-13 08:42] LABS: Lymphocytes % 16 %; Monocytes % 11 %; Neutrophil % 70 %
[2018-08-13 08:44] LABS: ABS Eosinophils 0.2 10^3/ul (0-0.6); ABS Neutrophils 4.76 10^3/ul (1.5-7.7)
[2018-08-13 09:50] LABS: Urine Appearance Cloudy; Urine Bacteria Absent (Absent); Urine Bilirubin Negative (Negative); Urine Blood Negative (Negative); Urine Color Amber; Urine Glucose Negative (Negative); Urine Ketones Trace (Negative); Urine Nitrite Negative (Negative); Urine Protein 2+(100 mg/dL) (Negative); Urine Red Blood Cell 1+(3-5/hpf) (Absent); Urine Specific Gravity 1.045 (1.010-1.030); Urine Squamous Epithelial Cell Present (Absent); Urine Urobilinogen Positive (Negative); Urine White Blood Cell Trace(0-5/hpf) (Absent)
[2018-08-13 09:57] LABS: Influenza A Molecular NEGATIVE (Negative); Influenza B Molecular NEGATIVE (Negative)
--- NOTE | 2018-08-13 11:35 | PN ---
Progress Note - Progress Note Date of Service: 08/13/18 SOAP: Subjective: [Presented to the ER with c/o high fevers overnight. Measured temperatures up to 104F at home despite multiple doses of APAP at home. He was seen by Ghada Wright NP yesterday in the clinic. His had mentioned intermittent fevers at that time and he had a slight QTc prolongation on EKG. He was given instructions to stop his BRAF/MEC inhibitors as the fevers and EKG changes were likely drug related. He had taken his morning dose yesterday, today would be his first day without the medication. In the ER he has been afebrile. Reports that he is feeling ok at the moment. No c/o cough, ST, n/v/d or abd pain.] Objective: [ Vital Signs: Temp Pulse Resp BP Pulse Ox 98.5 F 96 21 154/95 94 08/13/18 09:22 08/13/18 11:00 08/13/18 11:00 08/13/18 10:52 08/13/18 11:00 Laboratory Results - last 24 hr 08/13/18 08/13/18 08/13/18 07:41 07:41 07:41 WBC RBC Hgb Hct MCV MCH MCHC RDW Plt Count MPV Neut % (Auto) Lymph % (Auto) [place] % (Auto) Eos % (Auto) Baso % (Auto) Absolute Neuts (auto) Absolute Lymphs (auto) Absolute Monos (auto) Absolute Eos (auto) Absolute Basos (auto) Absolute Nucleated RBC Neutrophils % Lymphocytes % Monocytes % Eosinophils % Nucleated RBC % Abs Neuts (Manual) Abs Lymphs (Manual) Abs Monocytes (Manual) Absolute Eos (Manual) Normal RBC Morphology INR (Anticoag Therapy) APTT Sodium 137 Potassium 3.4 L Chloride 102 Carbon Dioxide 26 Anion Gap 9 BUN 8 Creatinine 1.03 Est GFR ( Amer) 90.7 Est GFR (Non-Af Amer) 75.0 BUN/Creatinine Ratio 7.8 L Glucose 139 H Lactic Acid 1.1 Calcium 9.1 Total Bilirubin 0.70 AST 70 H ALT 113 H Alkaline Phosphatase 112 H Total Creatine Kinase 65 Troponin I 0.00 C-Reactive Protein 97.32 H B-Natriuretic Peptide 16 Total Protein 6.8 Albumin 3.7 Globulin 3.1 Albumin/Globulin Ratio 1.2 Urine Color Urine Appearance Urine pH Ur Specific [place] Urine Protein Urine Ketones Urine Blood Urine Nitrate Urine Bilirubin Urine Urobilinogen Ur Leukocyte Esterase Urine WBC (Auto) Urine RBC (Auto) Ur Squamous Epith Cells Urine Bacteria Urine Glucose Urine Ascorbic Acid Influenza A (Rapid) Influenza B (Rapid) 08/13/18 08/13/18 08/13/18 07:42 07:42 09:32 WBC 6.8 RBC 3.95 L Hgb 13.0 L Hct 38 L MCV 97 H MCH 33 H MCHC 34 RDW 12 Plt Count 228 MPV 6.8 L Neut % (Auto) Not Reportable Lymph % (Auto) Not Reportable [place] % (Auto) Not Reportable Eos % (Auto) Not Reportable Baso % (Auto) Not Reportable Absolute Neuts (auto) Not Reportable Absolute Lymphs (auto) Not Reportable Absolute Monos (auto) Not Reportable Absolute Eos (auto) Not Reportable Absolute Basos (auto) Not Reportable Absolute Nucleated RBC Not Reportable Neutrophils % 70 Lymphocytes % 16 Monocytes % 11 Eosinophils % 3 Nucleated RBC % Not Reportable Abs Neuts (Manual) 4.76 Abs Lymphs (Manual) 1.08 Abs Monocytes (Manual) 0.74 Absolute Eos (Manual) 0.2 Normal RBC Morphology Normal INR (Anticoag Therapy) 1.10 H APTT 64.2 H Sodium Potassium Chloride Carbon Dioxide Anion Gap BUN Creatinine Est GFR ( Amer) Est GFR (Non-Af Amer) BUN/Creatinine Ratio Glucose Lactic Acid Calcium Total Bilirubin AST ALT Alkaline Phosphatase Total Creatine Kinase Troponin I C-Reactive Protein B-Natriuretic Peptide Total Protein Albumin Globulin Albumin/Globulin Ratio Urine Color Christina Urine Appearance Cloudy Urine pH 5.0 Ur Specific [place] 1.045 H Urine Protein 2+(100 mg/dl) A Urine Ketones Trace A Urine Blood Negative Urine Nitrate Negative Urine Bilirubin Negative Urine Urobilinogen Positive A Ur Leukocyte Esterase Negative Urine WBC (Auto) Trace(0-5/hpf) Urine RBC (Auto) 1+(3-5/hpf) A Ur Squamous Epith Cells Present A Urine Bacteria Absent Urine Glucose Negative Urine Ascorbic Acid * A Influenza A (Rapid) Influenza B (Rapid) 08/13/18 09:45 WBC RBC Hgb Hct MCV MCH MCHC RDW Plt Count MPV Neut % (Auto) Lymph % (Auto) [place] % (Auto) Eos % (Auto) Baso % (Auto) Absolute Neuts (auto) Absolute Lymphs (auto) Absolute Monos (auto) Absolute Eos (auto) Absolute Basos (auto) Absolute Nucleated RBC Neutrophils % Lymphocytes % Monocytes % Eosinophils % Nucleated RBC % Abs Neuts (Manual) Abs Lymphs (Manual) Abs Monocytes (Manual) Absolute Eos (Manual) Normal RBC Morphology INR (Anticoag Therapy) APTT Sodium Potassium Chloride Carbon Dioxide Anion Gap BUN Creatinine Est GFR ( Amer) Est GFR (Non-Af Amer) BUN/Creatinine Ratio Glucose Lactic Acid Calcium Total Bilirubin AST ALT Alkaline Phosphatase Total Creatine Kinase Troponin I C-Reactive Protein B-Natriuretic Peptide Total Protein Albumin Globulin Albumin/Globulin Ratio Urine Color Urine Appearance Urine pH Ur Specific [place] Urine Protein Urine Ketones Urine Blood Urine Nitrate Urine Bilirubin Urine Urobilinogen Ur Leukocyte Esterase Urine WBC (Auto) Urine RBC (Auto) Ur Squamous Epith Cells Urine Bacteria Urine Glucose Urine Ascorbic Acid Influenza A (Rapid) Negative Influenza B (Rapid) Negative Exam Gen: Well appearing 53 yo male in NAD, accompanied by his HEENT: MMM CV: RRR, no m/r/g Resp: CTA, no w/c/r Abd: soft, nonTTP Ext: trace LE edema Skin: no rashes] Assessment: [53 yo male with metastatic melanoma treated with encorafenib/binimetinib who presented to the ER with c/o high fever. NO source of infection identified. CXR, UA and influenza testing negative. Labs remarkable only for mild transaminitis. Most likely source of his fevers is his oral chemotherapy agents ] Plan: [1. Fever - no indication for admission - hold encorafenib/binimetinib - no empiric abx indicated 2. Transaminitis - likely drug related 3. Metastatic melanoma - reassess appropriateness to resume encorafenib/binimetinib at appointment next week Dispo: ok for dc home from ER. Plan for follow - up in oncology office next week. Will repeat labs at that time. Plan discussed with patient, his and ER attending, Dr Espinoza]
[2018-08-13 12:59] VITALS: BP 147/100
[2018-08-13 13:22] LABS: Erythrocyte Sed Rate 86 mm/Hr (0-20)
== END | disposition home or self-care (01) ==
LOC: ED 06:28
DX: C79.31 Secondary malignant neoplasm of brain (principal); R50.9 Fever, unspecified; Z87.891 Personal history of nicotine dependence; I10 Essential (primary) hypertension; Z86.711 Personal history of pulmonary embolism; Z79.01 Long term (current) use of anticoagulants; Z92.21 Personal history of antineoplastic chemotherapy
CPT/HCPCS: 36415; 71046; 80053; 81003; 81015; 82550; 83605; 83880; 84484; 85025; 85060; 85610; 85652; 85730; 86140; 87040; 87086; 96360; 96361; 99282; 99284; J1642

== ENCOUNTER 2021-11-15 05:37 | Observation (INO) ==
[2021-11-15] MEDS ORDERED: Lactated Ringers 1000 ml BAG 1,000 ML IV SCH (06:00)
[2021-11-15] MEDS ORDERED: Buffered Lidocaine 1% SYRIN 1 ml INTRADERM ONE (06:00)
[2021-11-15] MEDS ORDERED: ceFAZolin 2 GM in NS PREMIX 2 GM/100 ML BAG IVPB ONE (06:02)
[2021-11-15 06:26] LABS: Activated Partial Thrombo Time 33.8 seconds (26.0-38.0); INR 1.03 (0.86-1.15)
[2021-11-15] MEDS ORDERED: Propofol 10 MG/ML 20 ML BTL ONE (06:45)
[2021-11-15] MEDS ORDERED: Ketamine HCL 50 mg/ml 10 ml VIAL (500 MG) ONE (06:46)
[2021-11-15] MEDS ORDERED: Midazolam 2 mg/2 ml VIAL 1 mg/ml 2 ml VIAL (2 mg) ONE (06:55)
[2021-11-15] MEDS ORDERED: Rocuronium 50 mg VIAL 10 mg/ml 5 ml VIAL (50 mg) ONE ×2 (07:25→08:14)
[2021-11-15] MEDS ORDERED: fentaNYL 250 mcg/5 ml 50 MCG/ML 5 ml VIAL (250 MCG) ONE (07:29)
[2021-11-15] MEDS ORDERED: EPHEDrine (Pressors) 50 MG/ML VIAL ONE (07:45)
[2021-11-15] MEDS ORDERED: Ondansetron 4 mg VIAL 2 MG/ML 2 ml VIAL IV PRN ×2 (07:47→08:45)
[2021-11-15] MEDS ORDERED: fentaNYL 100 mcg/2 ml 50 MCG/ML VIAL IV PRN (07:47)
[2021-11-15] MEDS ORDERED: Naloxone 0.4 mg VIAL 0.4 mg/ml 1 ml VIAL IV PRN (07:47)
[2021-11-15] MEDS ORDERED: HYDROmorphone 1 MG/1 ML SYRINGE IV PRN (07:47)
[2021-11-15] MEDS ORDERED: Sterile Water for Inj 10 ML ONE (08:00)
[2021-11-15] MEDS ORDERED: Glycopyrrolate IV 0.2 MG/ML 1 ML VIAL ONE (08:00)
[2021-11-15] MEDS ORDERED: Dexamethasone IV 4 MG/ML VIAL 1 ml VIAL ONE (08:00)
[2021-11-15] MEDS ORDERED: Acetaminophen IV 1 GM/100ML 100 ML IV ONE (08:06)
[2021-11-15] MEDS ORDERED: Phenylephrine IV 10 MG/ML 1 ml VIAL ONE ×2 (08:07→08:55)
[2021-11-15] MEDS ORDERED: Lactulose 30 ml UDC PO PRN (08:45)
[2021-11-15] MEDS ORDERED: Magnesium Hydroxide LIQ 30 ML UDC PO PRN (08:45)
[2021-11-15] MEDS ORDERED: Morphine 2 MG/ML SYRINGE IV PRN (08:45)
[2021-11-15] MEDS ORDERED: Ondansetron ODT 4 mg TAB 4 MG TAB PO PRN (08:45)
[2021-11-15] MEDS ORDERED: Potassium Chlor 20 meq TAB.ER PO SCH (09:00)
[2021-11-15] MEDS ORDERED: Ondansetron 4 mg VIAL 2 MG/ML 2 ml VIAL ONE (09:30)
[2021-11-15] MEDS ORDERED: ROPIVACAINE 5 MG/ML 30 ML BTL (0.5%) ONE (09:47)
[2021-11-15] MEDS: Lactated Ringers 1000 ml BAG 1,000 ML IV SCH ×2 (12:00→22:17)
[2021-11-15] MEDS: Vitamin THERAPEUTIC TAB PO SCH (12:17)
[2021-11-15] MEDS: Magnesium Hydroxide LIQ 30 ML UDC PO SCH ×2 (12:17→21:58)
[2021-11-15] MEDS: ceFAZolin 1 GM ADVAN 1 GM in NS 0.9% 50 ML 50 ML IVPB SCH (15:58)
[2021-11-16] MEDS: ceFAZolin 1 GM ADVAN 1 GM in NS 0.9% 50 ML 50 ML IVPB SCH ×2 (00:46→07:35)
[2021-11-16 06:39] LABS: Hematocrit 36 % (42-52); Hemoglobin 12.3 g/dL (14.0-18.0); Mean Platelet Volume 7.4 fL (7.4-10.4); Platelet Count 162 10^3/uL (150-450)
[2021-11-16 07:04] LABS: Calcium 8.5 mg/dL (8.6-10.3); Potassium 3.8 mmol/L (3.5-5.0); eGFR CKD-EPI 85.2 (>60)
[2021-11-16] MEDS: Vitamin THERAPEUTIC TAB PO SCH (08:29)
[2021-11-16] MEDS: Magnesium Hydroxide LIQ 30 ML UDC PO SCH (08:35)
[2021-11-16 15:40] VITALS: BP 120/73
== END 2021-11-16 18:40 | disposition home or self-care (01) ==
LOC: INTOOBSV 05:37 → AA 05:37 → SSU 11:46
PROVIDERS: ADMIT Orthopaedic Surgery Adult Reconstructive Orthopaedic Surgery; ATTEND Orthopaedic Surgery Adult Reconstructive Orthopaedic Surgery